=== PATIENT | female | born 1990 | race Caucasian/White ===

== ENCOUNTER 2023-02-21 21:23 | Outpatient (REF) | payer OTHER, SELFPAY ==
[2023-02-24 20:10] LABS: Age Gdln ACOG Testing Note (.); HPV Aptima Negative (Negative); IGP, Aptima HPV, rfx 16/18,45 Note (.)
== END 2023-02-21 21:24 | disposition home or self-care (01) ==
LOC: LAB 21:23
PROVIDERS: Visit Provider Obstetrics & Gynecology
DX: Z01.419 Encounter for gynecological examination (general) (routine) without abnormal findings (principal)
CPT/HCPCS: 87624; G0145

== ENCOUNTER 2024-02-08 11:10 | Outpatient (OUT) | payer OTHER, SELFPAY ==
[2024-02-08 13:02] LABS: TSH W/ REFLEX FT4 2.144 uIU/mL (0.358-3.740)
== END 2024-02-08 11:11 | disposition home or self-care (01) ==
DX: R53.83 Other fatigue (principal)
CPT/HCPCS: 36415; 84443

== ENCOUNTER 2024-07-30 20:54 | Outpatient (REF) | payer OTHER, SELFPAY ==
--- OUTSIDE RECORDS SUMMARY | 2024-07-30 20:57 | XMS_ITS | CCD ---
Author Organization [facility] Care Team Providers Care Pompom Maker Name Role Phone ROSANA JERRYSAM Ovalle Primary Care Unavailable MISC, DR SANFORD Primary Care Unavailable EJ, DR ANDRES Attending Unavailable EJ, DR ANDRES Admitting Unavailable EJ, DR ANDRES Consulting Unavailable MISC, DR SANFORD Primary Care Unavailable EJ, DR ANDRES Admitting Unavailable WEST, DR JAYANT Becerra Consulting Unavailable EJ, DR ANDRES Attending Unavailable EJ, DR ANDRES Consulting Unavailable MISC, DR SANFORD Primary Care Unavailable EJ, DR ANDRES Admitting Unavailable EJ, DR ANDRES Consulting Unavailable EJ, DR ANDRES Attending Unavailable MISC, DR SANFORD Primary Care Unavailable KARASIK, DR CROUCH Admitting Unavailable KARASIK, DR CROUCH Consulting Unavailable KARASIK, DR CROUCH Attending Unavailable ZIEBER, DR MARIELENA Romero Consulting Unavailable EJ, DR ANDRES Admitting Unavailable EJ, DR ANDRES Attending Unavailable MISC, DR SANFORD Primary Care Unavailable EJ, DR ANDRES Consulting Unavailable ZIEBER, DR MARIELENA Romero Consulting Unavailable EJ, DR ANDRES Admitting Unavailable MISC, DR SANFORD Primary Care Unavailable EJ, DR ANDRES Consulting Unavailable EJ, DR ANDRES Attending Unavailable MISC, DR SANFORD Primary Care Unavailable KARASIK, DR CROUCH Admitting Unavailable KARASIK, DR CROUCH Attending Unavailable EJ, DR ANDRES Admitting Unavailable MISC, DR SANFORD Primary Care Unavailable EJ, DR ANDRES Attending Unavailable MISC, DR SANFORD Primary Care Unavailable KARASIK, DR CROUCH Admitting Unavailable KARASIK, DR CROUCH Consulting Unavailable KARASIK, DR CROUCH Attending Unavailable KARASIK, DR CROUCH Procedure Practitioner NANDO Chacon Consulting Unavailable KAMILLE GREENE Consulting Unavailab le MISC, DR SANFORD Primary Care Unavailable EJ, DR ANDRES Admitting Unavailable EJ, DR ANDRES Attending Unavailable EJ, DR ANDRES Consulting Unavailable MISC, DOCTOR Primary Care Unavailable EJ, DR ANDRES Attending Unavailable EJ, DR ANDRES Admitting Unavailable EJ, DR ANDRES Consulting Unavailable EJ, DR ANDRES Admitting Unavailable MISC, DR SANFORD Primary Care Unavailable EJ, DR ANDRES Consulting Unavailable EJ, DR ANDRES Attending Unavailable MISC, DR SANFORD Primary Care Unavailable EJ, DR ANDRES Attending Unavailable EJ, DR ANDRES Admitting Unavailable EJ, DR ANDRES Consulting Unavailable ZIEBER, DR MARIELENA Romero Consulting Unavailable Allergies Allergy Classification Reported Allergen(s) Allergy Type Date of Onset Reaction(s) Facility (1 source) Doxycycline Drug Allergy 09-28-2013 [facility] Rep[facility] (1 source) Propranolol Drug Allergy 09-28-2013 [facility] (1 source) Shellfish Drug allergy (disorder) 04-23-2016 [facility] Problems Active Problems Problem Classification Problem Date Documented Da te Episodic/Chronic Acute bronchitis (1 source) Acute bronchitis, unspecified; Translations: [Acute bronchitis, unspecified] Onset: 09-30-2018 Episodic Deficiency and other anemia (1 source) Iron deficiency anemia secondary to blood loss (chronic); Translations: [IRON DEFIC ANEMIA SEC BLD LOSS CHRN] Onset: 07-26-2022 Chronic Menstrual disorders (4 sources) Irregular menstruation, unspecified; Translations: [IRREGULAR MENSTRUATION UNSPECIFIED] Onset: 01-01-2022 Chronic Other complications of ; puerperium affecting management of mother (1 source) Anemia complicating childbirth; Translations: [ANEMIA COMPLICATING CHILDBIRTH] Onset: 07-26-2022 Chronic Other complications of ; puerperium affecting management of mother (1 source) Abnormality in heart rate and rhythm complicating labor and delivery; Translations: [ABN FETL HEART RATE RHYTHM COMP L AND D] Onset: 07-26-2022 Episodic Other and delivery including normal (11 sources) Encounter for care and examination of lactating mother; Translations: [Encounter for routine follow-up] Onset: 07-04-2022 Episodic Pleurisy; pneumothorax; pulmonary collapse (1 source) Pleurisy; Translations: [Pleurisy] Onset: 09-30-2018 Episodic Polyhydramnios and other problems of amniotic cavity (1 source) Full-term premature rupture of membranes, onset of labor within 24 hours of rupture; Translations: [FT PROM ONSET LABR W/I 24 HR RUPT] Onset: 07-26-2022 Episodic Residual codes; unclassified (1 source) 37 weeks gestation of ; Translations: [37 WEEKS GESTATION OF ] Onset: 07-26-2022 Episodic Screening and history of mental health and substance abuse codes (1 source) Personal history of nicotine dependence; Translations: [PERSONAL HISTORY OF NICOTINE DEPEND] Onset: 07-26-2022 Episodic Unclassified (1 source) CONTACT W/AND (SUSP) EXPOS COVID-19; Translations: [CONTACT W/AND (SUSP) EXPOS COVID-19] Onset: 07-26-2022 Past or Other Problems Problem Classification Problem Date Documented Date Episodic/Chronic Diabetes mellitus without complication (4 sources) Hyperglycemia, unspecified; Translations: [HYPERGLYCEMIA UNSPECIFIED] Onset: 05-18-2022 Episodic Immunizations and screening for infectious disease (3 sources) Encounter for screening for human papillomavirus (HPV); Translations: [Encounter for screening for infections with a predominantly sexual mode of transmission] Onset: 01-06-2022 Episodic Other complications of (4 sources) Maternal care for cervical incompetence, second trimester; Translations: [MAT CARE CERV INCOMPETNCE 2ND TRI] Onset: 02-03-2022 Episodic Other complications of (1 source) Maternal care for cervical incompetence, first trimester; Translations: [MAT CARE CERV INCOMPETNCE 1ST TRI] Onset: 01-15-2022 Episodic Other female genital disorders (1 source) Other specified noninflammatory disorders of vagina; Translations: [OTH SPEC NONINFLAMMATORY D/O VAGINA] Onset: 02-13-2022 Episodic Other female genital disorders (3 sources) Incompetence of cervix uteri; Translations: [INCOMPETENCE OF CERVIX UTERI] Onset: 01-13-2022 Episodic Other screening for suspected conditions (not mental disorders or infectious disease) (20 sources) Encounter for screening for Streptococcus B; Translations: [Encounter for screening for diabetes mellitus] Onset: 01-01-2022 Episodic Residual codes; unclassified (1 source) 16 weeks gestation of ; Translations: [16 WEEKS GESTATION OF ] Onset: 02-22-2022 Episodic Residual codes; unclassified (1 source) 13 weeks gestation of ; Translations: [13 WEEKS GESTATION OF ] Onset: 01-15-2022 Episodic Results Test Name Value Interpretation Reference Range [facility] 07-24-2024 Refill [id number] Miles,Marci 1990 F Date Provider Department Home 07/24/2024 287-PATRICIA, JIMBO HVC CARD [facility] No family history on file Reason for Visit and Comments: Med Refill [[id number]] [facility] 06-25-2024 Refill [id number] Miles,Marci 1990 Date [facility] Department Home 06/25/2024 287-PATRICIA, JIMBO [facility] CARD [facility] No family history on file Reason for Visit and Comments: Med Refill [[id number]] [facility] 05-29-2024 Refill [id number] Miles,Marci 1990 F Date Provider Department Home 05/29/2024 Poornima6-BA PANIAGUA HVCANTICOAG [facility] No family history on file Reason for Visit and Comments: Med Refill [[id number]] [facility] 05-25-2024 Refill [id number] Miles,Marci 1990 F Date Provider Department Home 05/25/2024 287-PATRICIA, JIMBO HVC CARD [facility] No family history on file Reason for Visit and Comments: Med Refill [[id number]] [facility] 04-26-2024 Refill [id number] Miles,Marci 1990 F Date Provider Department Home 04/26/2024 287-PATRICIA, JIMBO HVC CARD [facility] No family history on file Reason for Visit and Comments: Med Refill [[id number]] [facility] 36on 03-29-2024 36 Previous fill to pharmacy on back order. Pt requests to have sent to different pharm [facility] 03-29-2024 Refill [id number] Miles,Marci 1990 F Date Provider Department Center 03/29/2024 287-PATRICIA, JIMBO [facility]VC CARD [facility] No family history on file Reason for Visit and Comments: Med Refill [[id number]] Normal [facility] 03-27-2024 Refill [id number] Miles,Marci 1990 F Date Provider Department Center 03/27/2024 287-PATRICIA, JIMBO HVC CARD [facility] No family history on file Reason for Visit and Comments: Med Refill [[id number]] [facility] 02-28-2024 Refill [id number] Miles,Marci 1990 Date Provider Department Home 02/28/2024 287-PATRICIA, JIMBO HVC CARD [facility] No family history on file Reason for Visit and Comments: Med Refill [[id number]] [facility] 01-30-2024 Refill [id number] Miles,Marci 1990 F Date Provider Department Center 01/30/2024 287-PATRICIA, JIMBO HVC CARD [facility] No family history on file Reason for Visit and Comments: Med Refill [[id number]] [facility] 01-02-2024 Refill [id number] Miles,Marci 1990 F Date Provider Department Home 01/02/2024 287-PATRICIA, JIMBO HVC CARD [facility] No family history on file Reason for Visit and Comments: Med Refill [[id number]] [facility] 11-09-2023 Refill [id number] Miles,Marci 1990 F Date Provider Department Center 11/09/2023 287-PATRICIA, JIMBO HVC CARD [facility] No family history on file Reason for Visit and Comments: Med Refill [[id number]] [facility] 11-08-2023 Refill [id number] Miles,Marci 1990 F Date Provider Department Center 11/08/2023 BA PEARCE [facility]VCANTICOAG [facility] No family history on file Reason for Visit and Comments: Med Refill [[id number]] [facility] 10-11-2023 Refill [id number] Miles,Marci 1990 Provider Department Home 10/11/2023 287-PATRICIA, JIMBO HVC CARD [facility] No family history on file Reason for Visit and Comments: Med Refill [[id number]] [facility] 09-12-2023 Refill [id number] Miles,Marci 1990 Provider Department Home 09/12/2023 287-PATRICIA, JIMBO HVC CARD [facility] No family history on file Reason for Visit and Comments: Med Refill [[id number]] [facility] 08-17-2023 Refill [id number] MilesMarci 1990 Provider Department Home 08/17/2023 287-PATRICIA, JIMBO HVC CARD [facility] No family history on file Reason for Visit and Comments: Med Refill [[id number]] [facility] 08-10-2023 Refill [id number] MilesMarci 1990 Provider Department Home 08/10/2023 287-PATRICIA, JIMBO HVC CARD [facility] No family history on file Reason for Visit and Comments: Med Refill [[id number]] [facility] PRBC LEUKOREDUCEDon 07-06-20 22 ABO and Rh group Nom (Bld) Cross Match Result Compatible Unit Blood Type A Pos Unit Number [id number] Status Information Transfused Product ID Red Blood Cells Product Code [id number] Cross Match Result Compatible Unit Blood Type A Pos Unit Number [id number] Status Information Transfused Product ID Red Blood Cells Product Code [id number] [facility] Comment on above: Performed By: #### P RBC #### [facility] [address] [place] [address] Dr. Kobi Cruz CBC AUTO DIFFon 07-05-2022 BASO # 0.0 103/ul Normal 0.0-0.1 [facility] Comment on above: Performed By: #### C BC #### [facility] [address] [place] [address] Dr. Kobi Cruz Basophils/100 WBC (Bld) 0.2 % Normal 0.2-2.0 [facility] Comment on above: Performed By: #### C BC #### [facility] [address] [place] [address] Dr. Kobi Cruz EO # 0.1 103/ul Normal 0.0-0.7 [facility] Comment on above: Performed By: #### C BC #### [facility] [address] [place] [address] Dr. Kobi Cruz Eosinophils/100 WBC (Bld) 0.4 % Critically low 0.9-7.0 [facility] Comment on above: Performed By: #### C BC #### [facility] [address] [place] [address] Dr. Kobi Cruz Erythrocyte distribution width (RBC) [Ratio] 16.0 % Critically high 11.0-15.0 [facility] Comment on above: Performed By: #### C BC #### [facility] [address] [place] [address] Dr. Kobi Cruz Hematocrit (Bld) [Volume fraction] 25.1 % Critically low 36.0-48.0 [facility] Comment on above: Performed By: #### C BC #### [facility] [address] [place] [address] Dr. Kobi Cruz Hemoglobin (Bld) [Mass/Vol] 8.2 g/dL Critically low 12.0-16.0 [facility] Comment on above: Performed By: #### C BC #### [facility] [address] [place] [address] Dr. Kobi Cruz IG # 0.20 10e3/ul Critically high 0.00-0.03 [facility] Comment on above: Performed By: #### C BC #### [facility] [address] [place] [address] Dr. Kobi Cruz IG % 1.1 % Critically high 0.0-0.5 [facility] Comment on above: Performed By: #### C BC #### [facility] [address] [place] [address] Dr. Kobi Cruz LYMPH # 1.9 103/ul Normal 1.2-3.8 [facility] Comment on above: Performed By: #### C BC #### [facility] [address] [place] [address] Dr. Kobi Cruz Lymphocytes/100 WBC (Bld) 10.1 % Critically low 20.5-60.0 [facility] Comment on above: Performed By: #### C BC #### [facility] [address] [place] [address] Dr. Kobi Cruz MANUAL DIFF REQ NO Normal [facility] Comment on above: Performed By: #### C BC #### [facility] [address] [place] [address] Dr. Kobi Cruz MCH (RBC) [Entitic mass] 27.1 pg Normal 26.7-34.0 [facility] Comment on above: Performed By: #### C BC #### [facility] [address] [place] [address] Dr. Kobi Cruz MCHC (RBC) [Mass/Vol] 32.7 g/dL Normal 29.9-35.2 [facility] Comment on above: Performed By: #### C BC #### [facility] [address] [place] [address] Dr. Kobi Cruz MCV (RBC) [Entitic vol] 82.8 fL Normal 81.0-99.0 [facility] Comment on above: Performed By: #### C BC #### [facility] [address] [place] [address] Dr. Kobi Cruz MONO # 1.2 103/ul Critically high 0.3-0.8 [facility] Comment on above: Performed By: #### C BC #### [facility] [address] [place] [address] Dr. Kobi Cruz Monocytes/100 WBC (Bld) 6.4 % Normal 1.7-12.0 [facility] Comment on above: Performed By: #### C BC #### [facility] [address] [place] [address] Dr. Kobi Cruz NEUT # 15.4 103/ul Critically high 1.4-6.5 [facility] Comment on above: Performed By: #### C BC #### [facility] [address] [place] [address] Dr. Kobi Cruz Neutrophils/100 WBC (Bld) 81.8 % Critically high 43.0-75.0 [facility] Comment on above: Performed By: #### C BC #### [facility] [address] [place] [address] Dr. Kobi Cruz Platelet mean volume (Bld) [Entitic vol] 10.2 fL Normal 9.5-13.5 [facility] Comment on above: Performed By: #### C BC #### [facility] [address] [place] [address] Dr. Kobi Cruz PLT 211 103/ul Normal 150-450 [facility] Comment on above: Performed By: #### C BC #### [facility] [address] [place] [address] Dr. Kobi Cruz RBC 3.03 106/ul Critically low 4.20-5.40 [facility] Comment on above: Performed By: #### C BC #### [facility] [address] [place] [address] Dr. Kobi Cruz WBC 18.8 103/ul Critically high 4.0-11.0 [facility] Comment on above: Performed By: #### C BC #### [facility] [address] [place] [address] Dr. Kobi Cruz BASO # 0.0 103/ul Normal 0.0-0.1 [facility] Comment on above: Performed By: #### C BC #### [facility] [address] [place] [address] Dr. Kobi Cruz Basophils/100 WBC (Bld) 0.1 % Critically low 0.2-2.0 [facility] Comment on above: Performed By: #### C BC #### [facility] [address] [address] [address] Kobi Cruz EO # 0.0 103/ul Normal 0.0-0.7 [facility] Comment on above: Performed By: #### C BC #### [facility] [address] [address] [address] Kobi Cruz Eosinophils/100 WBC (Bld) 0.2 % Critically low 0.9-7.0 [facility] Comment on above: Performed By: #### C BC #### [facility] [address] [place] [address] Dr. Kobi Cruz Erythrocyte distribution width (RBC) [Ratio] 15.7 % Critically high 11.0-15.0 [facility] Comment on above: Performed By: #### C BC #### [facility] [address] [place] [address] Dr. Kobi Cruz Hematocrit (Bld) [Volume fraction] 21.2 % Critically low 36.0-48.0 [facility] Comment on above: Performed By: #### C BC #### [facility] [address] [place] [address] Dr. Kobi Cruz Hemoglobin (Bld) [Mass/Vol] 6.5 g/dL Critically low 12.0-16.0 [facility] Comment on above: Performed By: #### C BC #### [facility] [address] [address] [address] Kobi Cruz IG # 0.13 10e3/ul Critically high 0.00-0.03 [facility] Comment on above: Performed By: #### C BC #### [facility] [address] [place] [address] Dr. Kobi Cruz IG % 0.7 % Critically high 0.0-0.5 [facility] Comment on above: Performed By: #### C BC #### [facility] [address] [place] [address] Dr. Kobi Cruz LYMPH # 1.9 103/ul Normal 1.2-3.8 [facility] Comment on above: Performed By: #### C BC #### [facility] [address] [address] [address] Kobi Cruz Lymphocytes/100 WBC (Bld) 9.9 % Critically low 20.5-60.0 [facility] Comment on above: Performed By: #### C BC #### [facility] [address] [address] [address] Kobi Cruz MANUAL DIFF REQ NO Normal [facility] Comment on above: Performed By: #### C BC #### [facility] [address] [address] [address] Kobi Cruz MCH (RBC) [Entitic mass] 24.4 pg Critically low 26.7-34.0 [facility] Comment on above: Performed By: #### C BC #### [facility] [address] [place] [address] Dr. Kobi Cruz MCHC (RBC) [Mass/Vol] 30.7 g/dL Normal 29.9-35.2 [facility] Comment on above: Performed By: #### C BC #### [facility] [address] [place] [address] Dr. Kobi Cruz MCV (RBC) [Entitic vol] 79.7 fL Critically low 81.0-99.0 [facility] Comment on above: Performed By: #### C BC #### [facility] [address] [place] [address] Dr. Kobi Cruz MONO # 1.0 103/ul Critically high 0.3-0.8 [facility] Comment on above: Performed By: #### C BC #### [facility] [address] [place] [address] Dr. Kboi Cruz Monocytes/100 WBC (Bld) 5.3 % Normal 1.7-12.0 [facility] Comment on above: Performed By: #### C BC #### [facility] [address] [place] [address] Dr. Kobi Cruz NEUT # 15.8 103/ul Critically high 1.4-6.5 [facility] Comment on above: Performed By: #### C BC #### [facility] [address] [address] [address] Kobi Cruz Neutrophils/100 WBC (Bld) 83.8 % Critically high 43.0-75.0 [facility] Comment on above: Performed By: #### C BC #### [facility] [address] [place] [address] Dr. Kobi Cruz Platelet mean volume (Bld) [Entitic vol] 10.2 fL Normal 9.5-13.5 [facility] Comment on above: Performed By: #### C BC #### [facility] [address] [address] [address] Kobi Cruz PLT 218 103/ul Normal 150-450 [facility] Comment on above: Performed By: #### C BC #### [facility] [address] [place] [address] Dr. Kobi Cruz RBC 2.66 106/ul Critically low 4.20-5.40 [facility] Comment on above: Performed By: #### C BC #### [facility] [address] [place] [address] Dr. Kobi Cruz WBC 18.8 103/ul Critically high 4.0-11.0 [facility] Comment on above: Performed By: #### C BC #### [facility] [address] [place] [address] Dr. Kobi Cruz CBC AUTO DIFFon 07-04-2022 BASO # 0.0 103/ul Normal 0.0-0.1 [facility] Comment on above: Performed By: #### H H #### [facility] [address] [place] [address] Dr. Kobi Cruz Basophils/100 WBC (Bld) 0.1 % Critically low 0.2-2.0 [facility] Comment on above: Performed By: #### H H #### [facility] [address] [place] [address] Dr. Kobi Cruz EO # 0.1 103/ul Normal 0.0-0.7 [facility] Comment on above: Performed By: #### H H #### [facility] [address] [address] [address] Kobi Cruz Eosinophils/100 WBC (Bld) 0.6 % Critically low 0.9-7.0 [facility] Comment on above: Performed By: #### H H #### [facility] [address] [address] [address] Kobi Cruz Erythrocyte distribution width (RBC) [Ratio] 15.5 % Critically high 11.0-15.0 [facility] Comment on above: Performed By: #### H H #### [facility] [address] [place] [address] Dr. Kobi Cruz Hematocrit (Bld) [Volume fraction] 26.7 % Critically low 36.0-48.0 [facility] Comment on above: Performed By: #### H H #### [facility] [address] [place] [address] Dr. Kobi Cruz Hemoglobin (Bld) [Mass/Vol] 8.4 g/dL Critically low 12.0-16.0 [facility] Comment on above: Performed By: #### H H #### [facility] [address] [place] [address] Dr. Kobi Cruz IG # 0.12 10e3/ul Critically high 0.00-0.03 [facility] Comment on above: Performed By: #### H H #### [facility] [address] [place] [address] Dr. Kobi Cruz IG % 0.9 % Critically high 0.0-0.5 [facility] Comment on above: Performed By: #### H H #### [facility] [address] [address] [address] Kobi Cruz LYMPH # 1.6 103/ul Normal 1.2-3.8 [facility] Comment on above: Performed By: #### H H #### [facility] [address] [place] [address] Dr. Kobi Cruz Lymphocytes/100 WBC (Bld) 11.6 % Critically low 20.5-60.0 [facility] Comment on above: Performed By: #### H H #### [facility] [address] [address] [address] Kobi Cruz MANUAL DIFF REQ NO Normal [facility] Comment on above: Performed By: #### H H #### [facility] [address] [place] [address] Dr. Kobi Cruz MCH (RBC) [Entitic mass] 24.7 pg Critically low 26.7-34.0 [facility] Comment on above: Performed By: #### H H #### [facility] [address] [address] [address] Kobi Cruz MCHC (RBC) [Mass/Vol] 31.5 g/dL Normal 29.9-35.2 [facility] Comment on above: Performed By: #### H H #### [facility] [address] [place] [address] Dr. Kobi Cruz MCV (RBC) [Entitic vol] 78.5 fL Critically low 81.0-99.0 [facility] Comment on above: Performed By: #### H H #### [facility] [address] [place] [address] Dr. Kobi Cruz MONO # 1.0 103/ul Critically high 0.3-0.8 [facility] Comment on above: Performed By: #### H H #### [facility] [address] [place] [address] Dr. Kobi Cruz Monocytes/100 WBC (Bld) 7.0 % Normal 1.7-12.0 [facility] Comment on above: Performed By: #### H H #### [facility] [address] [place] [address] Dr. Kobi Cruz NEUT # 10.8 103/ul Critically high 1.4-6.5 [facility] Comment on above: Performed By: #### H H #### [facility] [address] [place] [address] Dr. Kobi Cruz Neutrophils/100 WBC (Bld) 79.8 % Critically high 43.0-75.0 [facility] Comment on above: Performed By: #### H H #### [facility] [address] [address] [address] Kobi Cruz Platelet mean volume (Bld) [Entitic vol] 11.0 fL Normal 9.5-13.5 [facility] Comment on above: Performed By: #### H H #### [facility] [address] [address] [address] Kobi Cruz PLT 280 103/ul Normal 150-450 [facility] Comment on above: Performed By: #### H H #### [facility] [address] [address] [address] Kobi Cruz RBC 3.40 106/ul Critically low 4.20-5.40 [facility] Comment on above: Performed By: #### H H #### [facility] [address] [address] [address] Kobi Cruz WBC 13.5 103/ul Critically high 4.0-11.0 [facility] Comment on above: Performed By: #### H H #### [facility] [address] [address] [address] Kobi Cruz Covid-19 PCR ([facility])on 06-07 SARS-CoV-2 (COVID-19) RNA GAETANO+probe Ql (Unsp spec) Not detected Normal NOT DETECTED [facility] Comment on above: Result Comment: When diagnostic testing is negative, the possibility of a false negative should be considered in the context of a patient's recent exposures and the presence of clinical signs and symptoms consistent with SARS-CoV-2. This test is not yet approved or cleared by the [place] FDA. When there are no FDA-approved or cleared tests available, and other criteria are met, FDA can make tests available under an emergency access mechanism called an Emergency Use Authorization (EUA). The EUA for this test is supported by the [employer] of Health and Human Service's declaration that circumstances exist to justify the emergency use of in vitro diagnostics for the detection and/or diagnosis of the virus that causes COVID-19. This EUA will remain in effect for the duration of the COVID-19 declaration justifying emergency of IVDs, unless it is terminated or revoked by the FDA (after which the test may no longer be used). Performed By: #### A 1C #### [facility] [address] [place] [address] Dr. Kobi Cruz DRUG SCREEN RAPID (URINE)on 07-04-2022 AMP Negative Normal NEGATIVE [facility] Comment on above: Performed By: #### H H #### [facility] [address] [place] [address] Dr. Kobi Cruz BAR Negative Normal NEGATIVE [facility] Comment on above: Performed By: #### H H #### [facility] [address] [place] [address] Dr. Kobi Cruz BUP Negative Normal NEGATIVE [facility] Comment on above: Performed By: #### H H #### [facility] [address] [place] [address] Dr. Kobi Cruz BZO Negative Normal NEGATIVE [facility] Comment on above: Performed By: #### H H #### [facility] [address] [place] [address] Dr. Kobi Cruz GUSTAVO Negative Normal NEGATIVE [facility] Comment on above: Performed By: #### H H #### [facility] [address] [place] [address] Dr. Kobi Cruz CUT-OFFS SEE BELOW Normal [facility] Comment on above: Result Comment: AMP (Amphetamine): 500ng/mL, BAR (Barbituates): 200 ng/mL, BZO (Benzodiazepines): 150 ng/mL, BUP (Buprenorphine): 10 ng/mL, GUSTAVO (Cocaine): 150 ng/mL, mAMP (Methamphetamine): 500 ng/mL, MTD (Methadone): 200 ng/mL, OPI (Opiates): 100 ng/mL, OXY (Oxycodone): 100 ng/mL, PCP (Phencyclidine): 25 ng/mL, PPX (Propoxyphene): 300 ng/mL, THC (Cannabinoids): 50 ng/mL, TCA (Trycyclic Antidepressants): 300 ng/mL Performed By: #### H H #### [facility] [address] [place] [address] Dr. Kobi Cruz DRUG CUT HEADER DRUG CLASS TEST SYSTEM CUT-OFF CONCENTRATIONS ARE FOLLOWS: Normal [facility] Comment on above: Performed By: #### H H #### [facility] [address] [place] [address] Dr. Kobi Cruz mAMP Negative Normal NEGATIVE [facility] Comment on above: Performed By: #### H H #### [facility] [address] [address] [address] Kobi Cruz MTD Negative Normal NEGATIVE [facility] Comment on above: Performed By: #### H H #### [facility] [address] [address] [address] Kobi Cruz OPI Negative Normal NEGATIVE [facility] Comment on above: Performed By: #### H H #### [facility] [address] [place] [address] Dr. Kobi Cruz OXY Negative Normal NEGATIVE [facility] Comment on above: Performed By: #### H H #### [facility] [address] [place] [address] Dr. Kobi Cruz PCP Negative Normal NEGATIVE [facility] Comment on above: Performed By: #### H H #### [facility] [address] [address] [address] Kobi Cruz PPX Negative Normal NEGATIVE [facility] Comment on above: Performed By: #### H H #### [facility] [address] [place] [address] Dr. Kobi Cruz TCA Negative Normal NEGATIVE [facility] Comment on above: Performed By: #### H H #### [facility] [address] [place] [address] Dr. Kobi Cruz THC Negative Normal NEGATIVE [facility] Comment on above: Performed By: #### H H #### [facility] [address] [place] [address] Dr. Kobi Cruz TYPE AND SCREENon 07-04-2022 TYPE AND SCREEN Negative Normal [facility] Comment on above: Performed By: #### H H #### [facility] [address] [place] [address] Dr. Kobi Cruz GROUP B STREP CULTUREon 06-052 S. agalactiae Ag Ql (Unsp spec) Culture Observations: NEGATIVE FOR GROUP B STREPTOCOCCUS. Normal [facility] Comment on above: Performed By: #### H H #### [facility] [address] [place] [address] Dr. Kobi Cruz GLUCOSE BLOODon 05-18-2022 Glucose [Mass/Vol] 93 mg/dL Normal 74-106 [facility] Comment on above: Performed By: #### G LEONCIO #### [facility] [address] [place] [address] Dr. Kobi Cruz Performed By: #### A 1C #### [facility] [address] [place] [address] Dr. Kobi Cruz GTT 3 HR PREGon 05-18-2022 Glucose [Mass/Vol] 153 mg/dL Normal [facility] Comment on above: Performed By: #### A 1C #### [facility] [address] [place] [address] Dr. Kobi Cruz Glucose [Mass/Vol] 84 mg/dL Normal [facility] Comment on above: Performed By: #### A 1C #### [facility] [address] [place] [address] Dr. Kobi Cruz Glucose [Mass/Vol] 80 mg/dL Normal [facility] Comment on above: Performed By: #### A 1C #### [facility] [address] [place] [address] Dr. Kobi Cruz GLUCOSE - 1HRon 05-04-2022 Glucose [Mass/Vol] 140 mg/dL Critically high 74-106 [facility] Comment on above: Performed By: #### A 1C #### [facility] [address] [place] [address] Dr. Kobi Cruz HEMOGRAM AND PLATELon 2021 Hematocrit (Bld) [Volume fraction] 29.7 % Critically low 36.0-48.0 [facility] Comment on above: Performed By: #### H H #### [facility] [address] [place] [address] Dr. Kobi Cruz Hemoglobin (Bld) [Mass/Vol] 9.6 g/dL Critically low 12.0-16.0 [facility] Comment on above: Performed By: #### H H #### [facility] [address] [place] [address] Dr. Kobi Cruz MCH (RBC) [Entitic mass] 28.1 pg Normal 26.7-34.0 [facility] Comment on above: Performed By: #### H H #### [facility] [address] [place] [address] Dr. Kobi Cruz MCHC (RBC) [Mass/Vol] 32.3 g/dL Normal 29.9-35.2 [facility] Comment on above: Performed By: #### H H #### [facility] [address] [place] [address] Dr. Kobi Cruz MCV (RBC) [Entitic vol] 86.8 fL Normal 81.0-99.0 [facility] Comment on above: Performed By: #### H H #### [facility] [address] [place] [address] Dr. Kobi Cruz PLT 320 103/ul Normal 150-450 [facility] Comment on above: Performed By: #### H H #### [facility] [address] [place] [address] Dr. Kobi Cruz RBC 3.42 106/ul Critically low 4.20-5.40 [facility] Comment on above: Performed By: #### H H #### [facility] [address] [place] [address] Dr. Kobi Cruz WBC 12.4 103/ul Critically high 4.0-11.0 [facility] Comment on above: Performed By: #### H H #### [facility] [address] [place] [address] Dr. Kobi Cruz US PREG ANATOMY SINGLEon US PREG ANATOMY SINGLE EXAMINATION: US PREG ANATOMY SINGLE HISTORY: anatomy study COMPARISON: No relevant comparison available. TECHNIQUE: Transabdominal sonographic examination was performed for obstetrical and evaluation. FINDINGS: Number: 1 Heart Rate: 141.0 bpm H.B. /min Amniotic Fluid Volume: Subjectively normal position: Cephalic presentation, longitudinal lie Placental Location: Posterior. Grade 0. Placental edge 2.9 cm from the cervical os Cervix Length: 4 cm , closed Normally visualized anatomy: Cerebellum, choroid plexus, cisterna magna, lateral cerebral ventricles, orbits, midline falx, hard palate, four-chamber heart, RVOT, LVOT, stomach, kidneys, bladder, umbilical cord insertion into the abdomen, three-vessel cord, cervical spine, thoracic spine, lumbar spine, sacral spine, right upper extremity, left upper extremity, right lower extremity, left lower extremity Suboptimally visualized anatomy: None BIOMETRY: BPD: 4.8 cm 20 weeks 3 days , 58% HC: 17.5 cm 20 weeks 0 days, 30% AC: 14.9 cm 20 weeks 1 days, 41% FL: 3.5 cm 21 weeks 0 days, 65% EFW:356.6 grams; 13 ounces, 57% FL/AC: 23.2 FL/BPD: 72.4 HC/AC: 1.2 GESTATIONAL AGE: Age by EDC: 20 weeks 2 days JEISON by EDC: 07/19/2022 Age by current US: 20 weeks 3 days JEISON by current US: 07/18/2022 IMPRESSION: Normal anatomy scan *Reference: [facility] Practice Guideline for the performance of Obstetric Ultrasound Examinations, June 05, 2007. Electronically authenticated by: JAYANT MCGRAW Date: 2022-03-03 16:43 Normal [facility] PAP ACOG PANEL 2: 21 to 29on 02-15-2022 . . Normal [facility] Comment on above: Performed By: #### A 1C #### [facility] [address] [address] [address] Kobi Cruz Age Gdln ACOG Testing Normal [facility] Comment on above: Performed By: #### A 1C #### [facility] [address] [address] [address] Kobi Cruz DIAGNOSIS: Comment [facility] Comment on above: Result Comment: NEGA TIVE FOR INTRAEPITHELIAL LESION OR MALIGNANCY. Performed By: #### A 1C #### [facility] [address] [address] [address] Kobi Cruz Methodology: Comment [facility] Comment on above: Result Comment: This liquid based ThinPrep(R) pap test was screened with the use of an image guided system. Performed By: #### A 1C #### [facility] [address] [place] [address] Dr. Kobi Cruz Note: Comment Normal [facility] Comment on above: Result Comment: The Pap smear is a screening test designed to aid in the detection of premalignant and malignant conditions of the uterine cervix. It is not a diagnostic procedure and should not be used as the sole means of detecting cervical cancer. Both false-positive and false-negative reports do occur. . Performed By: #### A 1C #### [facility] [address] [place] [address] Dr. Kobi Cruz Performed by: Comment Normal [facility] Comment on above: Result Comment: Omega Alfaro, Nuclear Logging Engineer (ASCP) Performed By: #### A 1C #### [facility] [address] [place] [address] Dr. Kobi Cruz Reflex Criteria: Comment Normal [facility] Comment on above: Result Comment: The HPV DNA reflex criteria were not met with this specimen result therefore, no HPV testing was performed. . Performed By: #### A 1C #### [facility] [address] [place] [address] Dr. Kobi Cruz Specimen adequacy: Comment Normal [facility] Comment on above: Result Comment: Sati sfactory for evaluation. No endocervical component is identified. Performed By: #### A 1C #### [facility] [address] [place] [address] Dr. Kobi Cruz CHLAMYDIA/GONOCOCCUS GAETANO (SW AB/URINE/PAPon 02-13-2022 Chlamydia trachomatis, GAETANO Negative Normal Negative [facility] Comment on above: Performed By: #### A 1C #### [facility] [address] [place] [address] Dr. Kobi Cruz Neisseria gonorrhoeae, GAETANO Negative Normal Negative [facility] Comment on above: Performed By: #### A 1C #### [facility] [address] [place] [address] Dr. Kobi Curz VAGINITIS/VAGINOSIS DNA PROB Zafar 02-12-2022 Georgette species Negative Normal Negative [facility] Comment on above: Performed By: #### V AGINT #### [facility] [address] [address] [address] Kobi Cruz Gardnerella vaginalis Negative Normal Negative [facility] Comment on above: Performed By: #### V AGINT #### [facility] [address] [address] [address] Kobi Cruz Trichomonas vaginalis Negative Normal Negative [facility] Comment on above: Performed By: #### V AGINT #### [facility] [address] [address] [address] Kobi Cruz US PREG CERVICAL LENGTHon US PREG CERVICAL LENGTH EXAMINATION: US PREG CERVICAL LENGTH HISTORY: Disorder of uterine cervix , cervical incompetence COMPARISON: Ultrasound cervical length 01/13/2022 TECHNIQUE: Transabdominal and transvaginal sonographic examination for cervical length. FINDINGS: CERVIX LENGTH: 4.0 cm, closed. HEART RATE: 151 bpm Age by EDC: 16 weeks, 2 days JEISON by EDC: 07/19/2022 IMPRESSION: 1. Grossly stable, closed cervix 4.0 cm in length (previously 4.3 cm). Electronically authenticated by: MARIELENA MCCARTHY Date: 2022-02-03 10:57 Normal [facility] US PREG CERVICAL LENGTHon US PREG CERVICAL LENGTH EXAMINATION: US PREG CERVICAL LENGTH HISTORY: Disorder of uterine cervix ; cervical incompetence COMPARISON: Ultrasound transvaginal 12/14/2021 TECHNIQUE: Transabdominal and transvaginal sonographic examination for cervical length. FINDINGS: CERVIX LENGTH: 4.3 cm in length; closed. HEART RATE: 147 bpm Age by EDC: 13 weeks, 2 days JEISON by EDC: 07/19/2022 IMPRESSION: 1. Closed cervix 4.3 cm in length. Electronically authenticated by: MARIELENA MCCARTHY Date: 2022-01-13 09:28 Normal [facility] HEP B SURFACE ANTIGEN SCREEN on 01-03-2022 HBsAg Screen Negative Normal Negative [facility] Comment on above: Performed By: #### H BSANS #### [facility] [address] [address] [address] Kobi Cruz HEPATITIS C VIRUS AB W/ REFL EX QUANTon 01-03-2022 HCV AB 0.1 s/co ratio Normal 0.0-0.9 [facility] Comment on above: Performed By: #### A 1C #### [facility] [address] [place] [address] Dr. Kobi Cruz Interpretation: Comment Normal [facility] Comment on above: Result Comment: Nega tive Not infected with HCV, unless recent infection is suspected or other evidence exists to indicate HCV infection. Performed By: #### A 1C #### [facility] [address] [place] [address] Dr. Kobi Cruz HIV 1 AND 2 WITH REFLEXon HIV Screen 4th Generation wRfx Non-Reactive Normal Non Reactive [facility] Comment on above: Result Comment: HIV Negative HIV-1/HIV-2 antibodies and HIV-1 p24 antigen were NOT detected. There is no laboratory evidence of HIV infection. Performed By: #### H H #### [facility] [address] [place] [address] Dr. Kobi Cruz RPR QUANTon 01-03-2022 Rapid Plasma Reagin, Quant Non-Reactive Normal NonRea<1:1 [facility] Comment on above: Result Comment: Plea se Note: This test does not meet current guidelines for screening and diagnosis of syphilis. This test is intended for following treatment response in patients being treated for syphilis infection. To screen for syphilis infection, a reflex cascade that includes both RPR and a treponema-specific assay should be utilized, such as Treponema pallidum (Syphilis) Screening [place] (175734) or Rapid Plasma Reagin (RPR) Test With Reflex to Quantitative RPR and Confirmatory Treponema pallidum Antibodies (440048). Performed By: #### A 1C #### [facility] [address] [place] [address] Dr. Kobi Cruz RUBELLA AB IGGon 01-03-2022 Rubella Antibodies, IgG 12.70 index Normal Immune >0.99 [facility] Comment on above: Result Comment: Non- immune <0.90 Equivocal 0.90 - 0.99 Immune >0.99 Performed By: #### A 1C #### [facility] [address] [place] [address] Dr. Kobi Cruz CBC AUTO DIFFon 01-01-2022 BASO # 0.0 103/ul Normal 0.0-0.1 [facility] Comment on above: Performed By: #### H H #### [facility] [address] [place] [address] Dr. Kobi Cruz Basophils/100 WBC (Bld) 0.2 % Normal 0.2-2.0 [facility] Comment on above: Performed By: #### H H #### [facility] [address] [place] [address] Dr. Kobi Cruz EO # 0.5 103/ul Normal 0.0-0.7 [facility] Comment on above: Performed By: #### H H #### [facility] [address] [place] [address] Dr. Kobi Cruz Eosinophils/100 WBC (Bld) 3.5 % Normal 0.9-7.0 [facility] Comment on above: Performed By: #### H H #### [facility] [address] [place] [address] Dr. Kobi Cruz Erythrocyte distribution width (RBC) [Ratio] 12.5 % Normal 11.0-15.0 [facility] Comment on above: Performed By: #### H H #### [facility] [address] [place] [address] Dr. Kobi Cruz Hematocrit (Bld) [Volume fraction] 34.8 % Critically low 36.0-48.0 [facility] Comment on above: Performed By: #### H H #### [facility] [address] [place] [address] Dr. Kobi Cruz Hemoglobin (Bld) [Mass/Vol] 12.0 g/dL Normal 12.0-16.0 [facility] Comment on above: Performed By: #### H H #### [facility] [address] [place] [address] Dr. Kobi Cruz IG # 0.04 10e3/ul Critically high 0.00-0.03 [facility] Comment on above: Performed By: #### H H #### [facility] [address] [place] [address] Dr. Kobi Cruz IG % 0.3 % Normal 0.0-0.5 [facility] Comment on above: Performed By: #### H H #### [facility] [address] [place] [address] Dr. Kobi Cruz LYMPH # 2.0 103/ul Normal 1.2-3.8 [facility] Comment on above: Performed By: #### H H #### [facility] [address] [place] [address] Dr. Kobi Cruz Lymphocytes/100 WBC (Bld) 14.8 % Critically low 20.5-60.0 [facility] Comment on above: Performed By: #### H H #### [facility] [address] [place] [address] Dr. Kobi Cruz MANUAL DIFF REQ NO Normal [facility] Comment on above: Performed By: #### H H #### [facility] [address] [place] [address] Dr. Kobi Cruz MCH (RBC) [Entitic mass] 30.8 pg Normal 26.7-34.0 [facility] Comment on above: Performed By: #### H H #### [facility] [address] [place] [address] Dr. Kobi Cruz MCHC (RBC) [Mass/Vol] 34.5 g/dL Normal 29.9-35.2 [facility] Comment on above: Performed By: #### H H #### [facility] [address] [place] [address] Dr. Kobi Cruz MCV (RBC) [Entitic vol] 89.2 fL Normal 81.0-99.0 [facility] Comment on above: Performed By: #### H H #### [facility] [address] [place] [address] Dr. Kobi Crzu MONO # 0.8 103/ul Normal 0.3-0.8 [facility] Comment on above: Performed By: #### H H #### [facility] [address] [address] [address] Kobi Cruz Monocytes/100 WBC (Bld) 6.2 % Normal 1.7-12.0 [facility] Comment on above: Performed By: #### H H #### [facility] [address] [address] [address] Kobi Cruz NEUT # 10.1 103/ul Critically high 1.4-6.5 [facility] Comment on above: Performed By: #### H H #### [facility] [address] [address] [address] Kobi Cruz Neutrophils/100 WBC (Bld) 75.0 % Normal 43.0-75.0 [facility] Comment on above: Performed By: #### H H #### [facility] [address] [place] [address] Dr. Kobi Cruz Platelet mean volume (Bld) [Entitic vol] 8.9 fL Critically low 9.5-13.5 [facility] Comment on above: Performed By: #### H H #### [facility] [address] [place] [address] Dr. Kobi Cruz PLT 445 103/ul Normal 150-450 [facility] Comment on above: Performed By: #### H H #### [facility] [address] [place] [address] Dr. Kobi Cruz RBC 3.90 106/ul Critically low 4.20-5.40 [facility] Comment on above: Performed By: #### H H #### [facility] [address] [place] [address] Dr. Kobi Cruz WBC 13.5 103/ul Critically high 4.0-11.0 [facility] Comment on above: Performed By: #### H H #### [facility] [address] [place] [address] Dr. Kobi Cruz CULTURE URINEon 01-01-2022 CULTURE URINE Culture Observations : NO GROWTH Normal [facility] Comment on above: Performed By: #### U RCX #### [facility] [address] [address] [address] Kobi Cruz GLYCOHEMOGLOBIN A1Con 2021 ADA RECOMMENDATION SEE BELOW Normal [facility] Comment on above: Result Comment: ADA RECOMMENDED LIMIT 4.0 - 6.0 ADA THERAPEUTIC TARGET < 7.0 ACTION SUGGESTED > 7.0 Performed By: #### A 1C #### [facility] [address] [place] [address] Dr. Kobi Cruz Glucose [Mass/Vol] 105 mg/dL Normal [facility] Comment on above: Performed By: #### A 1C #### [facility] [address] [place] [address] Dr. Kobi Cruz HbA1c (Bld) [Mass fraction] 5.3 % Normal 4.5-6.2 [facility] Comment on above: Performed By: #### A 1C #### [facility] [address] [place] [address] Dr. Kobi Cruz CECILIO BOX TEST PT SEND OUTo n 01-01-2022 SENT TO REF LAB 01/01/2022 Normal [facility] [facility] Comment on above: Performed By: #### A 1C #### [facility] [address] [place] [address] Dr. Kobi Cruz TYPE AND SCREENon 01-01-2022 TYPE AND SCREEN Negative Normal [facility] Comment on above: Performed By: #### T NS #### [facility] [address] [place] [address] Dr. Kobi Cruz US PREG TVon 12-14-2021 US PREG TV EXAMINATION: US PREG TV HISTORY: Missed period COMPARISON: No relevant comparison available. FINDINGS: GESTATIONAL SAC: Present and normal appearing. POLE: Present and normal appearing. YOLK SAC: Present. CARDIAC: Present. UTERUS: Small subchorionic hematoma, 1.7 x 1.3 x 0.6 cm OVARIES: Right: Normal. Left: Normal. CERVIX: 4.1ength and closed. CUL-DE-SAC: Normal. OTHER: None. AGE BY LMP: 9 weeks, 0 days JEISON BY LMP: 07/19/2022 AGE BY US CRL: 8 weeks, 4 days JEISON BY US CRL: 07/22/2022 IMPRESSION: 1. Single live intrauterine . Electronically authenticated by: MARIELENA MCCARHTY Date: 2021-12-14 10:35 Normal [facility] CBC With Platelet and Differ entialon 09-30-2018 Basophils #/vol (Bld) 0.1 10*3/uL Normal 0.0-0.2 [facility] Basophils/100 WBC (Bld) 1.0 % Normal [facility] Eosinophils #/vol (Bld) 1.1 10*3/uL Critically high 0.0-0.7 [facility] Eosinophils/100 WBC (Bld) 15.0 % Normal [facility] Erythrocyte distribution width Ratio (RBC) 12.0 % Normal 11.5-14.5 [facility] Hematocrit Volume Fraction (Bld) 38.5 % Normal 37.0-47.0 [facility] Hemoglobin mass conc (Bld) 13.6 g/dL Normal 12.0-16.0 [facility] Lymphocytes #/vol (Bld) 1.8 10*3/uL Normal 1.0-4.8 [facility] Lymphocytes/100 WBC (Bld) 23.7 % Normal [facility] MCH Entitic mass (RBC) 33.3 pg Critically high 27.0-31.3 [facility] MCHC mass conc (RBC) 35.3 % Normal 33.0-37.0 [facility] MCV Entitic volume (RBC) 94.3 fL Normal 82.0-100.0 [facility] Monocytes #/vol (Bld) 0.7 10*3/uL Normal 0.2-0.8 [facility] Monocytes/100 WBC (Bld) 8.6 % Normal [facility] Neutrophils #/vol (Bld) 3.9 10*3/uL Normal 1.4-6.5 [facility] Neutrophils/100 WBC (Bld) 51.7 % Normal [facility] Platelets #/vol (Bld) 374 10*3/uL Normal 130-400 [facility] RBC #/vol (Bld) 4.09 10*6/uL Low 4.20-5.40 [facility] WBC #/vol (Bld) 7.6 10*3/uL Normal 4.8-10.8 [facility] Comprehensive Metabolic Pane shane 09-30-2018 Albumin mass conc 4.9 g/dL Normal 3.9-4.9 [facility] ALP enzyme act/vol 49 U/L Normal 40-130 [facility] ALT enzyme act/vol 14 U/L Normal 0-33 [facility] Anion gap molar conc 11 mmol/L Normal 7-13 [facility] AST enzyme act/vol 19 U/L Normal 0-35 [facility] Bilirubin mass conc 0.3 mg/dL Normal 0.0-1.2 [facility] Calcium mass conc 9.5 mg/dL Normal 8.6-10.2 [facility] Chloride molar conc 104 mmol/L Normal 98-107 [facility] CO2 molar conc 24 mmol/L Normal 22-29 [facility] Creatinine mass conc 0.66 mg/dL Normal 0.50-0.90 [facility] GFR/1.73 sq M predicted among blacks MDRD vol rate/area (S/P/Bld) mL/min/{1.73_m2} Normal >60 [facility] Comment on above: Result Comment: >60 mL/min/1.73m2 EGFR, calc. for ages 18 and older using the MDRD formula (not corrected for weight), is valid for stable renal function. GFR/1.73 sq M.predicted MDRD vol rate/area mL/min/{1.73_m2} Normal >60 [facility] Comment on above: Result Comment: >60 mL/min/1.73m2 EGFR, calc. for ages 18 and older using the MDRD formula (not corrected for weight), is valid for stable renal function. Globulin mass conc (S) 3.1 g/dL Normal 2.3-3.5 [facility] Glucose mass conc 104 mg/dL Normal 74-109 [facility] Potassium molar conc 3.8 mmol/L Normal 3.5-5.1 [facility] Protein mass conc 8.0 g/dL Normal 6.4-8.1 [facility] Sodium molar conc 139 mmol/L Normal 132-144 [facility] Urea nitrogen mass conc 13 mg/dL Normal 6-20 [facility] Culture, Urineon 09-30-2018 Culture, Urine ORDERED BY: JAYANT BERMUDEZ SOURCE: Urine Clean Catch COLLECTED: 09/30/18 16:00 ANTIBIOTICS AT [facility]LLIE.: RECEIVED : 09/30/18 16:40 Culture, Urine FINAL 10/01/18 09:26 <50,000 CFU/ml of mixed nadiya Multiple organisms isolated, no predominance. Culture indicates probable contamination. Please review colony count and clinical indications to determine if a repeat culture is necessary. No further workup to be done. Normal [facility] D-Dimer Quanton 09-30-2018 D-Dimer Quant 0.32 mg/L FEU Normal 0.00-0.50 [facility] Comment on above: Result Comment: VTE (DVT or PE) cut-off = 0.50 mg/L FEU Magnesiumon 09-30-2018 Magnesium mass conc 2.1 mg/dL Normal 1.7-2.3 [facility] TSH w/out Reflexon 9 Thyrotropin Qn 1.270 uIU/mL Normal 0.270-4.20 [facility] Urinalysis, reflex to cultur zafar 09-30-2018 Bilirubin Ql (U) Negative Normal Negative [facility] Clarity Nom (U) CLOUDY Abnormal Clear [facility] Color Nom (U) Yellow Normal Straw/Baca [facility] Glucose Ql (U) Negative Normal Negative [facility] Hemoglobin Ql (U) TRACE Abnormal Negative [facility] Ketones Ql (U) Negative Normal Negative [facility] Leukocyte esterase Test strip Ql (U) TRACE Abnormal Negative [facility] Nitrite Ql (U) Negative Normal Negative [facility] pH (U) 5.0 [pH] Normal 5.0-9.0 [facility] Protein Ql (U) Negative Normal Negative [facility] Specific gravity Relative Density (U) 1.036 Normal 1.005-1.03 [facility] Urine Reflexed to Culture YES Normal [facility] Urobilinogen Qn (U) 1.0 {Lenin'U}/dL Normal < 2.0 [facility] Urine Microscopicon 09-30-19 RBC #/vol (U) 3-5 Abnormal 0-2 [facility] WBC #/vol (U) 6-10 Abnormal 0-5 [facility] Bacteria LM.HPF #/area (Urine sed) MANY Abnormal [facility] Urine Epithelial Cells Auto 6-10 Normal 0-5 [facility] Comment on above: Result Comment: Effe ctive 07/31/2018 Urinalysis microscopic performed using the automated methodology (AUWI analyzer). XR CHEST (2 VW)on 09-30-2018 XR CHEST (2 VW) EXAMINATION: XR CHES T (2 VW) CLINICAL HISTORY: cough COMPARISONS: February 24, 2014 FINDINGS: Two views of the chest are submitted. The cardiac silhouette is of normal size configuration. The mediastinum is unremarkable. Pulmonary vascular unremarkable. Right sided trachea. No focal infiltrates. No effusions. No Pneumothoraces. IMPRESSION: NO ACUTE ACTIVE CARDIOPULMONARY PROCESS Interpreted by: Chris Robles MD Signed by: Chris Robles MD 10/01/18 Final result Normal [facility] Encounters Encounter Date Encounter Type Care Provider Facility Start: 07-13-2022 End: 07-20-[address] MCKENNA PAGAN Facility:[facility] Start: 07-09-2022 End: 07-12-[address] DOCTOR SPENCE Facility:[facility] Start: 07-04-2022 End: 07-07-2022 Evaluation and management of inpatient DR DOCTOR SPENCE Facility:[facility] Start: 06-23-2022 End: 06-23-[address] MCKENNA PAGAN Facility:[facility] Start: 05-18-2022 End: 05-18-[address] MCKENNA PAGAN Facility:[facility] Start: 05-04-2022 End: 05-05-[address] DOCTOR SPENCE Facility:[facility] Start: 03-03-2022 End: 03-04-[address] DOCTOR SPENCE Facility:[facility] Start: 02-11-2022 End: 02-11-[address] DOCTOR SPENCE Facility:[facility] Start: 02-03-2022 End: 02-04-[address] DOCTOR SPENCE Facility:[facility] Start: 01-13-2022 End: 01-14-[address] MCKENNA PAGAN Facility:[facility] Start: 01-01-2022 End: 01-02-[address] DOCTOR SPENCE Facility:[facility] Start: 12-14-2021 End: 12-15-[address] DOCTOR SPENCE Facility:[facility] Start: 09-30-2018 End: 09-30-2018 Emergency department patient visit LENO Ovalle [facility] Procedures Date Procedure Procedure Detail Performing Clinician Start: 07-05-2022 Transfusion of Nonau tologous Red Blood Cells into Peripheral Vein, Percutaneous Approach DR DOCTOR SPENCE Start: 07-04-2022 Extraction of Produc ts of Conception, Low Cervical, Open Approach DR DOCTOR SPENCE Start: 09-30-2018 Radiologic exam chest 2 views LENO JERRY Start: 09-30-2018 Assay of magnesium CHRI AYLSSA JERRY Start: 09-30-2018 Assay of thyroid sti mulating hormone tsh LENO JERRY Start: 09-30-2018 Comprehensive metabolic panel LENO JERRY Start: 09-30-2018 POCT URINE CH RISTOPHER ROSALINO Start: 09-30-2018 Blood count complete auto&auto difrntl wbc LENO JERRY Start: 09-30-2018 Culture bacterial qu anttative colony count urine LENO JERRY Start: 09-30-2018 D-DIMER, QUANTITATIVE C HRISTJAY JERRY Start: 09-30-2018 Microscopic urinalysis LENO JERRY Start: 09-30-2018 URINE RT REFLEX TO CULTURE LENO JERRY Payers Date Payer Category Payer Unknown [id number] 1990 Unknown [id number] 2.16.8 [id number] 1990 Unknown [id number] 2.16.84 [id number] 1990 Unknown [id number] 2.16.84 [id number] 1992 Unknown [id number] 2.16.84 [id number] 1992 Unknown [id number] 2.16.84 [id number] 1992 Unknown [id number] 2.16.84 [id number] 1992 Unknown [id number] 2.16.84 [id number] 1992 Unknown [id number] 2.16.84 [id number] 1992 Unknown [id number] 2.16.84 [id number] 1992 Unknown [id number] 2.16.84 [id number] 1992 Unknown [id number] 2.16.84 [id number] 1992 Unknown [id number] 2.16.84 [id number] 1992 Unknown [id number] 2.16.84 [id number] 1957 Medicaid [id number] 1957 Self-pay [id number] 1957 Unknown [id number] Unknown [id number] 2.16.84 [id number] Summary Purpose Family History No Family History Records FoundNo Family History Records FoundNo Family History Records Found Advance Directives No Advanced Directives Records FoundNo Advanced Directives Records FoundNo Advanced Directives Records Found Additional Source Comments INFORMATION SOURCE (unrecogn ized section and content) DATE CREATED AUTHOR 10/14/2018 [facility] DATE CREATED AUTHOR AUTHOR'S ORGANIZ ATION 10/19/2022 [facility] DATE CREATED AUTHOR AUTHOR'S ORGANIZ ATION 07/29/2024 [facility] FOR RECORDS PERTAINING TO PATIENTS WHO ARE OR HAVE BEEN ENROLLED IN A CHEMICAL DEPENDENCY/SUBSTANCEABUSE PROGRAM, SOME INFORMATION MAY BE OMITTED. This clinical summary was aggregated from multiple sources. Caution should be exercised in using it in the provision of clinical care. This summary normalizes information from multiple sources, and as a consequence, information in this document may materially change the coding, format and clinical context of patient data. In addition, data may be omitted in some cases. CLINICAL DECISIONS SHOULD BE BASED ON THE PRIMARY CLINICAL RECORDS. [facility]. provides no warranty or guarantee of the accuracy or completeness of information in this document.
== END 2024-07-30 20:55 | disposition home or self-care (01) ==
LOC: LAB 20:54
PROVIDERS: Visit Provider Obstetrics & Gynecology
DX: Z01.419 Encounter for gynecological examination (general) (routine) without abnormal findings (principal)
CPT/HCPCS: 87624; 88175

== ENCOUNTER 2025-07-23 10:02 | Emergency (ER) | payer OTHER, SELFPAY ==
[2025-07-23] VITALS (11 sets, daily range): BP systolic 115; BP diastolic 96; PULSE 79–113; TEMP 36.8; O2SAT 97–100; BMI 24.7
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
--- OUTSIDE RECORDS SUMMARY | 2025-07-23 10:51 | XMS_ITS | CCD ---
Author Organization [facility] Care Team Providers Care Robotic Machine Tender Production Name Role Phone LENO JERRY Yamile Primary Care Unavailable MISC, DR SANFORD Primary Care Unavailable MELQUIADES, DR ANDRES Attending Unavailable MELQUIADES, DR ANDRES Admitting Unavailable MELQUIADES, DR ANDRES Consulting Unavailable MISC, DR SANFORD Primary Care Unavailable MELQUIADES, DR ANDRES Admitting Unavailable WEST, DR JAYANT Becerra Consulting Unavailable MELQUIADES, DR ANDRES Attending Unavailable MELQUIADES, DR ANDRES Consulting Unavailable MISC, DR SANFORD Primary Care Unavailable MELQUIADES, DR ANDRES Admitting Unavailable MELQUIADES, DR ANDRES Consulting Unavailable MELQUIADES, DR ANDRES Attending Unavailable MISC, DR SANFORD Primary Care Unavailable KARASIK, DR CROUCH Admitting Unavailable KARASIK, DR CROUCH Consulting Unavailable KARASIK, DR CROUCH Attending Unavailable ZIEBER, DR MARIELENA Romero Consulting Unavailable MELQUIADES, DR ANDRES Admitting Unavailable MELQUIADES, DR ANDRES Attending Unavailable MISC, DR SANFORD Primary Care Unavailable MELQUIADES, DR ANDRES Consulting Unavailable ZIEBER, DR MARIELENA Romero Consulting Unavailable MELQUIADES, DR ANDRES Admitting Unavailable MISC, DR SANFORD Primary Care Unavailable MELQUIADES, DR ANDRES Consulting Unavailable MELQUIADES, DR ANDRES Attending Unavailable MISC, DR SANFORD Primary Care Unavailable KARASIK, DR CROUCH Admitting Unavailable KARASIK, DR CROUCH Attending Unavailable MELQUIADES, DR ANDRES Admitting Unavailable MISC, DR SANFORD Primary Care Unavailable MELQUIADES, DR ANDRES Attending Unavailable MISC, DR SANFORD Primary Care Unavailable KARASIK, DR CROUCH Admitting Unavailable KARASIK, DR CROUCH Consulting Unavailable KARASIK, DR CROUCH Attending Unavailable KARASIK, DR CROUCH Procedure Practitioner NANDO Chacon Consulting Unavailable KAMILLE GREENE Consulting Unavailab le MISC, DR SANFORD Primary Care Unavailable MELQUIADES, DR ANDRES Admitting Unavailable MELQUIADES, DR ANDRES Attending Unavailable MELQUIADES, DR ANDRES Consulting Unavailable MISC, DR SANFORD Primary Care Unavailable MELQUIADES, DR ANDRES Attending Unavailable MELQUIADES, DR ANDRES Admitting Unavailable MELQUIADES, DR ANDRES Consulting Unavailable MELQUIADES, DR ANDRES Admitting Unavailable MISC, DR SANFORD Primary Care Unavailable MELQUIADES, DR ANDRES Consulting Unavailable MELQUIADES, DR ANDRES Attending Unavailable MISC, DR SANFORD Primary Care Unavailable MELQUIADES, DR ANDRES Attending Unavailable MELQUIADES, DR ANDRES Admitting Unavailable MELQUIADES, DR ANDRES Consulting Unavailable PRITIEBER, DR MARIELENA Romero Consulting Unavailable Guanako MEHTA [place] Primary Care Provider MCKENNA ARNETT Attending Unavailable PAO HENDERSON Attending Unavailable Allergies Allergy ClassificationReported Allergen(s)Allergy TypeDate of OnsetReaction(s) Facility (2 sources)Doxycycline; Translations: [DOXYCYCLINE]Drug Xsxomip03-05-7173Ppo[facility] Rep[facility] (2 sources)Propranolol; Translations: [PROPRANOLOL]Drug Qjosanb71-62-7594StkSouthview Medical Center Repository (1 source)ShellfishDrug allergy (disorder)70-92-1547XqnSouthview Medical Center Repository (4 sources)DoxycyclineDrug Azhnnut55-22-1168AesisheSZKC Healthcare Work Phone: (4 sources)hydroCHLOROthiazide / PropranololDrug Idlzziz03-48-9269MkpznwhQZZR Healthcare (4 sources)Shellfish-Derived ProductsDrug Imyrplk96-58-3826NajjkblIPDD Healthcare (3 sources)Fish - dietaryPropensity to adverse -52-1352BQUQ Healthcare (3 sources)PropranololDrug Cvudlhb55-30-0430RvryrpcbXBUP Healthcare (3 sources)Fish-Derived ProductsDrug Eujlmpglwbd38-68-6254VXZA Healthcare (1 source)salmon oil; Translations: [SALMON OIL]Drug Ahoayer63-66-4246NcyggyhpkaRiverview Health Institute Repository (1 source)Shellfish; Translations: [SHELLFISH DERIVED]Propensity to adverse reactions to drug (disorder)46-65-5074SiwhtgdqmwRiverview Health Institute Repository (1 source)FISH CONTAINING PRODUCTS; Translations: [FISH CONTAINING PRODUCTS] Propensity to adverse reactions to drug (disorder)66-57-1327NhqlsowtscParma Community [facility] Hospital Repository (1 source)PROPRANOLOL-HYDROCHLOROTHIAZID; Translations: [PROPRANOLOL-HYDROCHLOROTHIAZID]Propensity to adverse reactions to drug (disorder)27-95-5991WehmdyeobwParma Community General Hospital Repository Medications Current Medications MedicationDrug Class(es)DatesSig (Normalized)Sig (Original)[id number] 200 actuat albuterol 0.09 mg/actuat metered dose inhaler (4 sources)beta2-Adrenergic Agonistalbuterol HFA (ProAir HFA) 90 mcg/act inhaler every 4 (four) hours. Ldyfpa19 hr buPROPion hydrochloride 150 mg extended release oral tablet (4 sources)AminoketonebuPROPion SR (Wellbutrin SR) 150 MG 12 hr tablet 1 (one) time each day at the same time. Activeescitalopram 20 mg oral tablet (4 sources)Serotonin Reuptake Inhibitorescitalopram (Lexapro) 20 MG tablet 1 (one) time each day at the same time. Cligsg293 actuat fluticasone propionate 0.11 mg/actuat metered dose inhaler (4 sources)Corticosteroidtake 1 puff(s) by inhalation in the morningfluticasone (Flovent) 110 MCG/ACT inhaler Inhale 1 puff in the morning and 1 puff before bedtime. Rinse mouth with water after use to reduce aftertaste and incidence of candidiasis. Do not swallow.. Activeloratadine 10 mg oral capsule (4 sources)Loratadine (Claritin) 10 MG capsule 1 capsule 1 (one) time each day at the same time. Activeomeprazole 20 mg delayed release oral capsule (4 sources)Proton Pump Inhibitoromeprazole (PriLOSEC) [address] capsule 1 (one) time each day at the same time. Activesaccharomyces boulardii 250 mg oral capsule (4 sources)saccharomyces boulardii (Florastor) 250 MG capsule as directed Orally Active Problems Active Problems Problem ClassificationProblemDateDocumented DateEpisodic/ChronicAbdominal pain (2 sources)Pain in female pelvis; Translations: [Pelvic and perineal pain] 66-52-3974LinlllwuOyglv bronchitis (1 source)Acute bronchitis, unspecified; Translations: [Acute bronchitis, unspecified]Onset: 29-54-5496WllnmosbHxxdutvwvx and other anemia (1 source)Iron deficiency anemia secondary to blood loss (chronic); Translations: [IRON DEFIC ANEMIA SEC BLD LOSS CHRN]Onset: 03-55-9099Gkqlcxf Menstrual disorders (8 sources)Irregular menstruation, unspecified; Translations: [Menorrhagia] Onset: 31-36-1602QrcbetbDydsk complications of ; puerperium affecting management of mother (1 source)Anemia complicating childbirth; Translations: [ANEMIA COMPLICATING CHILDBIRTH]Onset: 53-40-4884OjlfuvfEivlj complications of ; puerperium affecting management of mother (1 source)Abnormality in heart rate and rhythm complicating labor and delivery; Translations: [ABN FETLHEART RATE RHYTHM COMP L AND D]Onset: 01-40-4994SsabhiywSiauiitg; pneumothorax; pulmonary collapse (1 source)Pleurisy; Translations: [Pleurisy]Onset: 86-11-0438Mhbtohsu Polyhydramnios and other problems of amniotic cavity (1 source)Full-term premature rupture of membranes, onset of labor within 24 hours of rupture; Translations: [FT PROM ONSET LABR W/I 24 HR RUPT]Onset: 29-93-4472LuzoydzuYhabzero codes; unclassified (1 source)37 weeks gestation of ; Translations: [37 WEEKS GESTATION OF ]Onset: 49-75-4362YuaoncqlAqdqyjmvd and history of mental health and substance abuse codes (1 source)Personal history of nicotine dependence; Translations: [PERSONAL HISTORY OF NICOTINE DEPEND]Onset: 28-24-8124ZjlokifmRjbycgescvbw (1 source)CONTACT W/AND (SUSP) EXPOS COVID-19; Translations: [CONTACT W/AND (SUSP) EXPOS COVID-19]Onset: 07-26-2022 Past or Other Problems Problem ClassificationProblemDateDocumented DateEpisodic/ChronicDiabetes mellitus without complication (4 sources)Hyperglycemia, unspecified; Translations: [HYPERGLYCEMIA UNSPECIFIED] Onset: 25-54-9250ZgrzptxrNeovmcoxvrsfr and screening for infectious disease (3 sources)Encounter for screening for human papillomavirus (HPV); Translations: [Encounter for screening for infections with a predominantly sexual mode of transmission]Onset: 89-73-8480MsltcvunHbutf aftercare (4 sources)Surgical follow-up; Translations: [Encounter for follow-up examination after completed treatment for conditions other than malignant neoplasm]Onset: 304766-04-8713ZibwfemsOjcpm circulatory disease (2 sources)Postural orthostatic tachycardia syndrome ; Translations: [Postural orthostatic tachycardia syndrome (POTS)]Onset: 44-85-8046IwyueysqHumfq complications of (4 sources)Maternal care for cervical incompetence, second trimester; Translations: [MAT CARE CERV ZQYPUSGLTNU1SO TRI]Onset: 82-01-3602BtldvzivJejel complications of (1 source)Maternal care for cervical incompetence, first trimester; Translations: [MAT CARE CERV INCOMPETNCE 1ST TRI]Onset: 45-10-2396JzqlvpxrNehay complications of (4 sources)Recurrent miscarriage; Translations: [ care for patient with recurrent loss, unspecified trimester]Onset: 555137-38-7241 EpisodicOther female genital disorders (1 source)Other specified noninflammatory disorders of vagina; Translations: [OTH SPEC NONINFLAMMATORY D/O VAGINA]Onset: 98-78-1057AthljadtPxelk female genital disorders (3 sources)Incompetence of cervix uteri; Translations: [INCOMPETENCE OF CERVIX UTERI]Onset: 06-19-3812EpxldnrnMckoa and delivery including normal (15 sources)Encounter for care and examination of lactating mother; Translations: [Encounter for routine follow-up]Onset: 07-04-2022 EpisodicOther screening for suspected conditions (not mental disorders or infectious disease) (20 sources)Encounter for screening for Streptococcus B; Translations: [Encounter for screening for diabetes mellitus]Onset: 68-24-3474IdufvnarTwzkfomd codes; unclassified (1 source)16 weeks gestation of ; Translations: [16 WEEKS GESTATION OF ]Onset: 95-07-9900PklosbodQawebvda codes; unclassified (1 source)13 weeks gestation of ; Translations: [13 WEEKS GESTATION OF ]Onset: 10-66-9331Rxiblbwh Results Test NameValueInterpretationReference RangeFacilityBronson Lakeview Hospital 44-00-1152Kyfxpy [id number] Marci Peralta 1990 F Date Provider Department Center 06/24/2025 287-PATRICIA, JIMBO [facility] Family History Problem Relation Age of Onset Lupus Mother Ovarian cancer Mother 29 Other Sister Allergies Brother Liver cancer Mother's Brother COPD Maternal Grandmother Breast cancer Paternal Grandmother No Known Problems Daughter Sudden Neg Hx Aneurysm Neg Hx Arrhythmia Neg Hx Family Status - Relation Status Age at Mother Alive Sister Brother Mother's Brother Maternal Grandmother Paternal Grandmother Daughter Alive Neg Hx Reason for Visit and Comments: Med Refill [[id number]][facility] 05-23-2025 [id number] Marci Peralta 1990 F Date Provider Department Center 05/23/2025 287-PATRICIA, JIMBO [facility] Family History Problem Relation Age of Onset Lupus Mother Ovarian cancer Mother 29 Other Sister Allergies Brother Liver cancer Mother's Brother COPD Maternal Grandmother Breast cancer Paternal Grandmother No Known Problems Daughter Sudden Neg Hx Aneurysm Neg Hx Arrhythmia Neg Hx Family Status - Relation Status Age at Mother Alive Sister Brother Mother's Brother Maternal Grandmother Paternal Grandmother Daughter Alive Neg Hx Reason for Visit and Comments: Med Refill [[id number]][facility] 04-[facility]-2025 [id number] Marci Peralta 1990 F Date Provider Department Center 04/24/2025 287-PATRICIA, JIMBO [facility] Family History Problem Relation Age of Onset Lupus Mother Ovarian cancer Mother 29 Other Sister Allergies Brother Liver cancer Mother's Brother COPD Maternal Grandmother Breast cancer Paternal Grandmother No Known Problems Daughter Sudden Neg Hx Aneurysm Neg Hx Arrhythmia Neg Hx Family Status - Relation Status Age at Mother Alive Sister Brother Mother's Brother Maternal Grandmother Paternal Grandmother Daughter Alive Neg Hx Reason for Visit and Comments: Med Refill [[id number]][facility] 03-27-2025 [id number] Marci Peralta 1990 F Date Provider Department Center 03/27/2025 287-PATRICIA, JIMBO [facility] Family History Problem Relation Age of Onset Lupus Mother Ovarian cancer Mother 29 Other Sister Allergies Brother Liver cancer Mother's Brother COPD Maternal Grandmother Breast cancer Paternal Grandmother No Known Problems Daughter Sudden Neg Hx Aneurysm Neg Hx Arrhythmia Neg Hx Family Status - Relation Status Age at Mother Alive Sister Brother Mother's Brother Maternal Grandmother Paternal Grandmother Daughter Alive Neg Hx Reason for Visit and Comments: Med Refill [[id number]][facility] 02-28-2025 [id number] Marci Peralta 1990 F Date Provider Department Center 02/28/2025 287-PATRICIA, JIMBO [facility] Family History Problem Relation Age of Onset Lupus Mother Ovarian cancer Mother 29 Other Sister Allergies Brother Liver cancer Mother's Brother COPD Maternal Grandmother Breast cancer Paternal Grandmother No Known Problems Daughter Sudden Neg Hx Aneurysm Neg Hx Arrhythmia Neg Hx Family Status - Relation Status Age at Mother Alive Sister Brother Mother's Brother Maternal Grandmother Paternal Grandmother Daughter Alive Neg Hx Reason for Visit and Comments: Med Refill [[id number]][facility] 01-29-2025 [id number] MilesMarci 1990 F Date Provider Department Center 01/29/2025 287-PATRICIA, JIMBO [facility] Family History Problem Relation Age of Onset Lupus Mother Ovarian cancer Mother 29 Other Sister Allergies Brother Liver cancer Mother's Brother COPD Maternal Grandmother Breast cancer Paternal Grandmother No Known Problems Daughter Sudden Neg Hx Aneurysm Neg Hx Arrhythmia Neg Hx Family Status - Relation Status Age at Mother Alive Sister Brother Mother's Brother Maternal Grandmother Paternal Grandmother Daughter Alive Neg Hx Reason for Visit and Comments: Med Refill [[id number]][facility] 01-03-2025 [id number] Marci Peralta 1990 F Date Provider Department Center 01/03/2025 287-PATRICIA, JIMBO [facility] Family History Problem Relation Age of Onset Lupus Mother Ovarian cancer Mother 29 Other Sister Allergies Brother Liver cancer Mother's Brother COPD Maternal Grandmother Breast cancer Paternal Grandmother No Known Problems Daughter Sudden Neg Hx Aneurysm Neg Hx Arrhythmia Neg Hx Family Status - Relation Status Age at Mother Alive Sister Brother Mother's Brother Maternal Grandmother Paternal Grandmother Daughter Alive Neg Hx Reason for Visit and Comments: Med Refill [[id number]][facility] 12-04-2024 [id number] Marci Peralta 1990 F Date Provider Department Center 12/04/2024 287-PATRICIA, JIMBO [facility] Family History Problem Relation Age of Onset Lupus Mother Ovarian cancer Mother 29 Other Sister Allergies Brother Liver cancer Mother's Brother COPD Maternal Grandmother Breast cancer Paternal Grandmother No Known Problems Daughter Sudden Neg Hx Aneurysm Neg Hx Arrhythmia Neg Hx Family Status - Relation Status Age at Mother Alive Sister Brother Mother's Brother Maternal Grandmother Paternal Grandmother Daughter Alive Neg Hx Reason for Visit and Comments: Med Refill [[id number]][facility] 11-07-2024 [id number] MilesMarci 1990 F Date Provider Department Center 11/07/2024 287-PATRICIA, JIMBO [facility] Family History Problem Relation Age of Onset Lupus Mother Ovarian cancer Mother 29 Other Sister Allergies Brother Liver cancer Mother's Brother COPD Maternal Grandmother Breast cancer Paternal Grandmother No Known Problems Daughter Sudden Neg Hx Aneurysm Neg Hx Arrhythmia Neg Hx Family Status - Relation Status Age at Mother Alive Sister Brother Mother's Brother Maternal Grandmother Paternal Grandmother Daughter Alive Neg Hx Reason for Visit and Comments: Med Refill [[id number]][facility] 10-12-2024 [id number] MilesMarci 1990 F Date Provider Department Center 10/12/2024 287-PATRICIA, JIMBO [facility] Family History Problem Relation Age of Onset Lupus Mother Ovarian cancer Mother 29 Other Sister Allergies Brother Liver cancer Mother's Brother COPD Maternal Grandmother Breast cancer Paternal Grandmother No Known Problems Daughter Sudden Neg Hx Aneurysm Neg Hx Arrhythmia Neg Hx Family Status - Relation Status Age at Mother Alive Sister Brother Mother's Brother Maternal Grandmother Paternal Grandmother Daughter Alive Neg Hx Reason for Visit and Comments: Med Refill [[id number]][facility] 09-10-2024 [id number] MilesMarci 1990 F Date Provider Department Center 09/10/2024 JIMBO HERNADEZ [facility] Family History Problem Relation Age of Onset Lupus Mother Ovarian cancer Mother 29 Other Sister Allergies Brother Liver cancer Mother's Brother COPD Maternal Grandmother Breast cancer Paternal Grandmother No Known Problems Daughter Sudden Neg Hx Aneurysm Neg Hx Arrhythmia Neg Hx Family Status - Relation Status Age at Mother Alive Sister Brother Mother's Brother Maternal Grandmother Paternal Grandmother Daughter Alive Neg Hx Reason for Visit and Comments: Med Refill [[id number]][facility]36on Vy[place]se increased today at clinic visitNormalUniDayton Children's Hospital Follow-Upon [id number] Marci Peralta 1990 F Date Provider Department Center 08/14/2024 PAO MORA [facility] Family History Problem Relation Age of Onset Lupus Mother Ovarian cancer Mother 29 Other Sister Allergies Brother Liver cancer Mother's Brother COPD Maternal Grandmother Breast cancer Paternal Grandmother No Known Problems Daughter Sudden Neg Hx Aneurysm Neg Hx Arrhythmia Neg Hx Family Status - Relation Status Age at Mother Alive Sister Brother Mother's Brother Maternal Grandmother Paternal Grandmother Daughter Alive Neg Hx Level of Service:16102 [place] OFFICE/OUTPATIENT ESTABLISHED LOW MDM 20 MIN Reason for Visit and Comments: Follow-up [[id number]][facility] 08-14-2024 [id number] Marci Peralta 1990 F Date Provider Department Center 08/14/2024 BRITTANY MCMAHON [facility] Family History Problem Relation Age of Onset Lupus Mother Ovarian cancer Mother 29 Other Sister Allergies Brother Liver cancer Mother's Brother COPD Maternal Grandmother Breast cancer Paternal Grandmother No Known Problems Daughter Sudden Neg Hx Aneurysm Neg Hx Arrhythmia Neg Hx Family Status - Relation Status Age at Mother Alive Sister Brother Mother's Brother Maternal Grandmother Paternal Grandmother Daughter Alive Neg Hx Reason for Visit and Comments: Med Refill [[id number]][facility] CenterIGP,APTIMA HPV,AGE GDLNon 08-73-0649VSK GDLN ACOG TESTINGNote.NOMS HealthcareComment on above:TESTS RESULT FLAG UNITS REF RANGE LAB Clinician Provided Cytology Information Source.............Cervix;Endocervix No. of containers..01 ThinPrep Vial Age Algo ACOG Aure... 30-65 01 FLAG LEGEND: L-Low Normal,H-High Normal,LL-Alert Low,HH-Alert High <-Panic Low,>-Panic High,A-Abnormal,AA-Critical Abnormal Performed at: 01 =G [address] [address] Rosy Khan MD, HPV APTIMANegativeNegativeNOMS HealthcareComment on above:This nucleic acid amplification test detects fourteen high- risk HPV types (16,18,31,33,35,39,45,51,52,56,58,59,66,68) without differentiation. Performed at: =G [facility] [id number] Aoc Director Combat Plans Officer: Rosy Khan MD, Phone: [phone] Performed at: - [facility], [place] [id number] Aoc Director Combat Plans Officer: Rosy Khan MD, Phone: [phone] IGP, APTIMA HPV, RFX 16/18,45Note.NOMS HealthcareComment on above:TESTS RESULT FLAG UNITS REF RANGE LAB DIAGNOSIS: 02 NEGATIVE FOR INTRAEPITHELIAL LESION OR MALIGNANCY. Specimen adequacy: 02 Satisfactory for evaluation. Endocervical and/or squamous metaplastic cells (endocervical component) are present. Performed by: Adam Kang, Gut Dropper (ASCP) . 02 Note: Note 02 The Pap smear is a screening test designed to aid in the detection of premalignant and malignant conditions of the uterine cervix. It is not a diagnostic procedure and should not be used as the sole means of detecting cervical cancer. Both false-positive and false-negative reports do occur. Test Methodology: Note 02 This liquid based ThinPrep(R) pap test was screened with the use of an image guided system. HPV Genotype Reflex Note 02 Criteria not met, HPV Genotype not performed. FLAG LEGEND: L-Low Normal,H-High Normal,LL-Alert Low,HH-Alert High <-Panic Low,>-Panic High,A-Abnormal,AA-Critical Abnormal Performed at: [facility] [address] [place] [address] Rosy Khan MD, BRUSH-SPATULA CERVIX ENDOCERVIX [facility] [id number] Marci Peralta 1990 F Date Provider Department Center 07/24/2024 JIMBO HERNADEZ [facility] No family history on file Reason for Visit and Comments: Med Refill [[id number]][facility] CenterPRBC LEUKOREDUCEDon 12-91-9031VVC and Rh group Nom (Bld)Cross Match Result Compatible Unit Blood Type A Pos Unit Number [id number] Status Information Transfused Product ID Red Blood Cells Product Code [id number] Cross Match Result Compatible Unit Blood Type A Pos Unit Number [id number] Status Information Transfused Product ID Red Blood Cells Product Code [id number]-Hyde Memorial HospitalComment on above:Performed By: #### PRBC #### [facility] [address] [place] [address] Dr. Kobi SureshC AUTO DIFFon 50-98-8661BFHG #0.0 103/ulNormal0.0-0.1[facility] Medical CenterComment on above:Performed By: #### CBC #### [facility] [address] [place] [address] Dr. Kobi Ussophils/100 WBC (Bld)0.2 %Normal0.2-2.0[facility] Comment on above:Performed By: #### CBC #### [facility] [address] [place] [address] Dr. Kobi Garcia #0.1 103/ulNormal0.0-0.7ThMcCullough-Hyde Memorial HospitalComment on above: Performed By: #### CBC #### [facility] [address] [place] [address] Dr. Kobi Benitezosinophils/100 WBC (Bld)0.4 %Critically low0.9-7.0The [facility] HospitalComment on above:Performed By: #### CBC #### [facility] [address] [place] [address] Dr. Yilan ChangErythrocyte distribution width (RBC) [Ratio]16.0 %Critically high 11.0-15.0The [facility] Southment on above:Performed By: #### CBC #### [facility] [address] [place] [address] Dr. Kobi CruzHematocrit (Bld) [Volume fraction]25.1 %Critically low36.0-48.0 The [facility] HospitalComment on above:Performed By: #### CBC #### [facility] [address] [place] [address] Dr. Kobi CruzHemoglobin (Bld) [Mass/Vol]8.2 g/dLCritically low12.0-16.0The [facility] HospitalComment on above:Performed By: #### CBC #### [facility] [address] [place] [address] Dr. Kobi Ley #0.20 10e3/ulCritically high0.00-0.03[facility] Comment on above:Performed By: #### CBC #### [facility] [address] [place] [address] Dr. Kobi Ley %1.1 %Critically high0.0-0.5The [facility] HospitalComment on above:Performed By: #### CBC #### [facility] [address] [place] [address] Dr. Kobi BullockH #1.9 103/ulNormal1.2-3.8The [facility] HospitalComment on above:Performed By: #### CBC #### [facility] [address] [place] [address] Dr. Kobi Clearymphocytes/100 WBC (Bld)10.1 %Critically low20.5-60.0The [facility] Southment on above:Performed By: #### CBC #### [facility] [address] [place] [address] Dr. Kobi LakeUAL DIFF REQNONormalThe [facility] HospitalComment on above: Performed By: #### CBC #### [facility] [address] [place] [address] Dr. Kobi Rossi (RBC) [Entitic mass]27.1 arBgwciu96.7-34.0The [facility] HospitalComment on above:Performed By: #### CBC #### [facility] [address] [place] [address] Dr. Kobi Rossi (RBC) [Mass/Vol]32.7 g/lWZezkux46.9-35.2The [facility] HospitalComment on above:Performed By: #### CBC #### [facility] [address] [place] [address] Dr. Kobi Rossi (RBC) [Entitic vol]82.8 xBJgaslb60.0-99.0The Henry County HospitalComment on above:Performed By: #### CBC #### [facility] [address] [place] [address] Dr. Kobi Sanz #1.2 103/ulCritically high0.3-0.8[facility] Comment on above:Performed By: #### CBC #### [facility] [address] [place] [address] Dr. Kobi Gillilandocytes/100 WBC (Bld)6.4 %Normal1.7-12.0[facility] Comment on above:Performed By: #### CBC #### [facility] [address] [place] [address] Dr. Kobi Garcia #15.4 103/ulCritically high1.4-6.5[facility] Comment on above:Performed By: #### CBC #### [facility] [address] [place] [address] Dr. Kobi Arguelloutrophils/100 WBC (Bld)81.8 %Critically high43.0-75.0The [facility] HospitalComment on above:Performed By: #### CBC #### [facility] [address] [place] [address] Dr. Kobi Carr mean volume (Bld) [Entitic vol]10.2 fLNormal9.5-13.5The [facility] HospitalComment on above:Performed By: #### CBC #### [facility] [address] [place] [address] Dr. Kobi CruzPLT211 103/tdIrdjdb536-533Bxa [facility]Com[facility] on above: Performed By: #### CBC #### [facility] [address] [place] [address] Dr. Kobi CruzRBC3.03 106/ulCritically low4.20-5.40The [facility]Com[facility] on above:Performed By: #### CBC #### [facility] [address] [place] [address] Dr. Kobi CruzWBC18.8 103/ulCritically high4.0-11.0The [facility]Com[facility] on above:Performed By: #### CBC #### [facility] [address] [place] [address] Dr. Kobi CruzBASO #0.0 103/ulNormal0.0-0.1The [facility]Com[facility] on above:Performed By: #### CBC #### [facility] [address] [place] [address] Dr. Kobi Ussophils/100 WBC (Bld)0.1 %Critically low0.2-2.0The [facility] on above:Performed By: #### CBC #### [facility] [address] [place] [address] Dr. Kobi Garcia #0.0 103/ulNormal0.0-0.7The [facility]Com[facility] on above: Performed By: #### CBC #### [facility] [address] [place] [address] Dr. Kobi Benitezosinophils/100 WBC (Bld)0.2 %Critically low0.9-7.0The [facility] on above:Performed By: #### CBC #### [facility] [address] [place] [address] Dr. Kobi Benitezrythrocyte distribution width (RBC) [Ratio]15.7 %Critically high 11.0-15.0The [facility]lan HospitalComment on above:Performed By: #### CBC #### [facility] [address] [address] [address] Kobi CruzHematocrit (Bld) [Volume fraction]21.2 %Critically low36.0-48.0 The [facility] HospitalComment on above:Performed By: #### CBC #### [facility] [address] [address] [address] Kobi CruzHemoglobin (Bld) [Mass/Vol]6.5 g/dLCritically low12.0-16.0The [facility] HospitalComment on above:Performed By: #### CBC #### [facility] [address] [place] [address] Dr. Kobi CruzIG #0.13 10e3/ulCritically high0.00-0.03[facility] Comment on above:Performed By: #### CBC #### [facility] [address] [address] [address] Kobi CruzIG %0.7 %Critically high0.0-0.5The [facility] HospitalComment on above:Performed By: #### CBC #### [facility] [address] [address] [address] Kobi Tinsley #1.9 103/ulNormal1.2-3.8The [facility] HospitalComment on above:Performed By: #### CBC #### [facility] [address] [place] [address] Dr. Kobi Clearymphocytes/100 WBC (Bld)9.9 %Critically low20.5-60.0[facility] CenterComment on above:Performed By: #### CBC #### [facility] [address] [address] [address] Kobi LakeUAL DIFF REQNONormalThe [facility] County HospitalComment on above: Performed By: #### CBC #### [facility] [address] [place] [address] Dr. Kobi Quintanilla (RBC) [Entitic mass]24.4 pgCritically low26.7-34.0The [facility] HospitalComment on above:Performed By: #### CBC #### [facility] [address] [address] [address] Kobi RossiHC (RBC) [Mass/Vol]30.7 g/cVIpcicz28.9-35.2The [facility] HospitalComment on above:Performed By: #### CBC #### [facility] [address] [address] [address] Kobi RossiV (RBC) [Entitic vol]79.7 fLCritically low81.0-99.0The [facility] HospitalComment on above:Performed By: #### CBC #### [facility] [address] [place] [address] Dr. Kobi Sanz #1.0 103/ulCritically high0.3-0.8[facility] Comment on above:Performed By: #### CBC #### [facility] [address] [place] [address] Dr. Kobi Gillilandocytes/100 WBC (Bld)5.3 %Normal1.7-12.0[facility] Comment on above:Performed By: #### CBC #### [facility] [address] [place] [address] Dr. Kobi Garcia #15.8 103/ulCritically high1.4-6.5[facility] Comment on above:Performed By: #### CBC #### [facility] [address] [place] [address] Dr. Kobi Arguelloutrophils/100 WBC (Bld)83.8 %Critically high43.0-75.0The [facility] HospitalComment on above:Performed By: #### CBC #### [facility] [address] [address] [address] Kobi Mathewlet mean volume (Bld) [Entitic vol]10.2 fLNormal9.5-13.5The [facility] HospitalComment on above:Performed By: #### CBC #### [facility] [address] [place] [address] Dr. Kobi KohliT218 103/ewRvgran657-461Wsy [facility] HospitalComment on above: Performed By: #### CBC #### [facility] [address] [place] [address] Dr. Kobi CruzRBC2.66 106/ulCritically low4.20-5.40The [facility] HospitalComment on above:Performed By: #### CBC #### [facility] [address] [place] [address] Dr. Kobi CruzWBC18.8 103/ulCritically high4.0-11.0The [facility] HospitalComment on above:Performed By: #### CBC #### [facility] [address] [place] [address] Dr. Kobi Parisi AUTO DIFFon 31-33-0874IATA #0.0 103/ulNormal0.0-0.1The [facility] HospitalComtr[facility] on above:Performed By: #### HH #### [facility] [address] [place] [address] Dr. Kobi Ussophils/100 WBC (Bld)0.1 %Critically low0.2-2.0The [facility] on above:Performed By: #### HH #### [facility] [address] [place] [address] Dr. Kobi Garcia #0.1 103/ulNormal0.0-0.7The [facility] on above: Performed By: #### HH #### [facility] [address] [place] [address] Dr. Kobi Benitezosinophils/100 WBC (Bld)0.6 %Critically low0.9-7.0The [facility] on above:Performed By: #### HH #### [facility] [address] [place] [address] Dr. Kobi Benitezrythrocyte distribution width (RBC) [Ratio]15.5 %Critically high 11.0-15.0The [facility] Southment on above:Performed By: #### HH #### [facility] [address] [place] [address] Dr. Yilan ChangHematocrit (Bld) [Volume fraction]26.7 %Critically low36.0-48.0 The [facility] HospitalComment on above:Performed By: #### HH #### [facility] [address] [place] [address] Dr. Kobi CruzHemoglobin (Bld) [Mass/Vol]8.4 g/dLCritically low12.0-16.0The [facility] HospitalComment on above:Performed By: #### HH #### [facility] [address] [place] [address] Dr. Kobi CruzIG #0.12 10e3/ulCritically high0.00-0.03[facility] Comment on above:Performed By: #### HH #### [facility] [address] [place] [address] Dr. Kobi CruzIG %0.9 %Critically high0.0-0.5The [facility] HospitalComment on above:Performed By: #### HH #### [facility] [address] [place] [address] Dr. Kobi Tinsley #1.6 103/ulNormal1.2-3.8The [facility] HospitalComment on above:Performed By: #### HH #### [facility] [address] [place] [address] Dr. Kobi Clearymphocytes/100 WBC (Bld)11.6 %Critically low20.5-60.0The [facility] HospitalComment on above:Performed By: #### HH #### [facility] [address] [place] [address] Dr. Kobi CruzMANUAL DIFF REQNONormalThe [facility] HospitalComment on above: Performed By: #### HH #### [facility] [address] [place] [address] Dr. Kobi Quintanilla (RBC) [Entitic mass]24.7 pgCritically low26.7-34.0The [facility] HospitalComment on above:Performed By: #### HH #### [facility] [address] [place] [address] Dr. Kobi RossiHC (RBC) [Mass/Vol]31.5 g/gTUvcmfr26.9-35.2The [facility] HospitalComment on above:Performed By: #### HH #### [facility] [address] [address] [address] Kobi RossiV (RBC) [Entitic vol]78.5 fLCritically low81.0-99.0The [facility] HospitalComment on above:Performed By: #### HH #### [facility] [address] [address] [address] Kobi Sanz #1.0 103/ulCritically high0.3-0.8ThMcC[facility] Comment on above:Performed By: #### HH #### [facility] [address] [place] [address] Dr. Kobi Gillilandocytes/100 WBC (Bld)7.0 %Normal1.7-12.0[facility] Comment on above:Performed By: #### HH #### [facility] [address] [place] [address] Dr. Kobi Garcia #10.8 103/ulCritically high1.4-6.5[facility] Comment on above:Performed By: #### HH #### [facility] [address] [place] [address] Dr. Kobi Arguelloutrophils/100 WBC (Bld)79.8 %Critically high43.0-75.0The [facility] HospitalComment on above:Performed By: #### HH #### [facility] [address] [place] [address] Dr. Kobi Mathewlet mean volume (Bld) [Entitic vol]11.0 fLNormal9.5-13.5The [facility] HospitalComment on above:Performed By: #### HH #### [facility] [address] [place] [address] Dr. Kobi CruzPLT280 103/abQhgqll707-899Wiq [facility] HospitalComment on above: Performed By: #### HH #### [facility] [address] [place] [address] Dr. Kobi CruzRBC3.40 106/ulCritically low4.20-5.40[facility] CenterComment on above:Performed By: #### HH #### [facility] [address] [place] [address] Dr. Kobi CruzWBC13.5 103/ulCritically high4.0-11.0The [facility] HospitalComment on above:Performed By: #### HH #### [facility] [address] [place] [address] Dr. Kobi CruzCovid-19 PCR ([facility])on 84-22-1282TORD-CoV-2 (COVID-19) RNA AGETANO+probe Ql (Unsp spec)Not detectedNormalNOT DETECTEDThe [facility] Comment on above:Result Comment: When diagnostic testing is negative, the [...] for this test is supported by the [place] of Health and Human Service's declaration that circumstances exist to justify the emergency use of in vitro diagnostics for the detection and/or diagnosis of the virus that causes COVID-19. This EUA will remain in effect for the duration of the COVID-19 declaration justifying emergency of IVDs, unless it is terminated or revoked by the FDA (after which the test may no longer be used).Performed By: #### A1C #### [facility] [address] [place] [address] Dr. Kobi CruzDRUG SCREEN RAPID (URINE)on [id number]MWSXKR The [facility] HospitalComment on above:Performed By: #### HH #### [facility] [address] [place] [address] Dr. Kobi CruzBARNegativeNormalNEGATIVESouthview Medical CenterComment on above: Performed By: #### HH #### [facility] [address] [place] [address] Dr. Kobi CruzBUPNegativeNormalNEGATIVESouthview Medical CenterComtrinity [facility] on above: Performed By: #### HH #### [facility] [address] [address] [address] Kobi CruzBZONegativeNormalNEGATIVESouthview Medical CenterComment on above: Performed By: #### HH #### [facility] [address] [place] [address] Dr. Kobi CruzCOCNegativeNormalNEGATIVESouthview Medical CenterComment on above: Performed By: #### HH #### [facility] [address] [place] [address] Dr. Kobi PalomoClermont County Hospitalment on above: Result Comment: AMP (Amphetamine): 500ng/mL, BAR (Barbituates): 200 ng/mL, BZO (Benzodiazepines): 150 ng/mL, BUP (Buprenorphine): 10 ng/mL, GUSTAVO (Cocaine): 150 ng/mL, mAMP (Methamphetamine): 500 ng/mL, MTD (Methadone): 200 ng/mL, OPI (Opiates): 100 ng/mL, OXY (Oxycodone): 100 ng/mL, PCP (Phencyclidine): 25 ng/mL, PPX (Propoxyphene): 300 ng/mL, THC (Cannabinoids): 50 ng/mL, TCA (Trycyclic Antidepressants): 300 ng/mLPerformed By: #### HH #### [facility] [address] [place] [address] Dr. Kobi CruzDRUG CUT HEADERDRUG CLASS TEST SYSTEM CUT-OFF CONCENTRATIONS ARE FOLLOWS:NormalThe [facility] on above:Performed By: #### HH #### [facility] [address] [place] [address] Dr. Kobi CruzmAMPNegativeNormalNEGATIVEMercy Health Willard Hospital on above: Performed By: #### HH #### [facility] [address] [place] [address] Dr. Kobi CruzMTDNegativeNormalNEGKindred Hospital DaytonComment on above: Performed By: #### HH #### [facility] [address] [place] [address] Dr. Kobi CruzOPINegativeNormalNEGKindred Hospital DaytonComtrinity health [facility] on above: Performed By: #### HH #### [facility] [address] [place] [address] Dr. Kobi CruzOXYNegativeNormalNEGKindred Hospital DaytonComment on above: Performed By: #### HH #### [facility] [address] [place] [address] Dr. Kobi CruzPCPNegativeNormalNEGKindred Hospital DaytonComtr[facility] on above: Performed By: #### HH #### [facility] [address] [place] [address] Dr. Kobi CruzPPXNegativeNormalNEGKindred Hospital DaytonComtr[facility] on above: Performed By: #### HH #### [facility] [address] [place] [address] Dr. Kobi CruzTCANegativeNormalNEGCommunity Regional Medical Center on above: Performed By: #### HH #### [facility] [address] [place] [address] Dr. Kobi CruzTHCNegativeNormalNEGCommunity Regional Medical Center on above: Performed By: #### HH #### [facility] [address] [place] [address] Dr. Kobi CruzTYPE AND SCREENon [id number] AND SCREENNegativeNoVeterans Health AdministrationComtrinity health ann [facility] hospital on above:Performed By: #### HH #### [facility] [address] [place] [address] Dr. Kobi CruzGROUP B STREP CULTUREon 06-23-2022. agalactiae Ag Ql (Unsp spec) Culture Observations: NEGATIVE FOR GROUP B STREPTOCOCCUS.NormalDelaware County Hospitalment on above: Performed By: #### HH #### [facility] [address] [place] [address] Dr. Kobi CruzGLUCOSE BLOODon 13-16-3794Oqswpal [Mass/Vol]93 mg/jPPsstts38-098 The [facility] HospitalComment on above:Performed By: #### GLUC #### [facility] [address] [place] [address] Dr. Kobi CruzPerformed By: #### A1C #### [facility] [address] [place] [address] Dr. Kobi CruzGTT 3 HR PREGon 04-95-3600Qjkukzv [Mass/Vol]153 mg/dLNoVeterans Health AdministrationComment on above:Performed By: #### A1C #### [facility] [address] [place] [address] Dr. Kobi CruzGlucose [Mass/Vol]84 mg/dLNoVeterans Health AdministrationComment on above:Performed By: #### A1C #### [facility] [address] [place] [address] Dr. Kobi CruzGlucose [Mass/Vol]80 mg/dLNoVeterans Health AdministrationComment on above:Performed By: #### A1C #### [facility] [address] [place] [address] Dr. Kobi CruzGLUCOSE - 1HRon 32-45-0701Kidlnnn [Mass/Vol]140 mg/dLCritically twkm33-565Ddl [facility] HospitalComment on above:Performed By: #### A1C #### [facility] [address] [place] [address] Dr. Kobi CruzHEMOGRAM AND PLATELon 59-88-3669Xncxcugqdl (Bld) [Volume fraction]29.7 %Critically low36.0-48.0The [facility] HospitalComment on above: Performed By: #### HH #### [facility] [address] [place] [address] Dr. Kobi CruzHemoglobin (Bld) [Mass/Vol]9.6 g/dLCritically low12.0-16.0The [facility] HospitalComment on above:Performed By: #### HH #### [facility] [address] [place] [address] Dr. Kobi Rossi (RBC) [Entitic mass]28.1 mgQnpbne60.7-34.0The [facility] HospitalComment on above:Performed By: #### HH #### [facility] [address] [place] [address] Dr. Kobi Rossi (RBC) [Mass/Vol]32.3 g/kFGpmtaz43.9-35.2The [facility] HospitalComment on above:Performed By: #### HH #### [facility] [address] [place] [address] Dr. Kobi CruzOKLAHOMA [facility] [place] (RBC) [Entitic vol]86.8 dWCskjjn33.0-99.0The [facility] HospitalComment on above:Performed By: #### HH #### [facility] [address] [place] [address] Dr. Kobi CruzPLT320 103/azKbkpke595-771Ikt [facility] HospitalComment on above: Performed By: #### HH #### [facility] [address] [place] [address] Dr. Kobi CruzRBC3.42 106/ulCritically low4.20-5.40The [facility] HospitalComtrinity health [facility] on above:Performed By: #### HH #### [facility] [address] [place] [address] Dr. Kobi CruzWBC12.4 103/ulCritically high4.0-11.0The [facility] HospitalComment on above:Performed By: #### HH #### [facility] [address] [place] [address] Dr. Kobi Canales PREG ANATOMY SINGLEon [id number] PREG ANATOMY SINGLE EXAMINATION: US PREG ANATOMY [...] Electronically authenticated by: JAYANT MCGRAW Date: 2022-03-03 16:43[facility] ACOG PANEL 2: to 29on 02-15-2022..NormalThe [facility] HospitalComment on above:Performed By: #### A1C #### [facility] [address] [place] [address] Dr. Kobi Lewis Gdln ACOG Awkpgiw28-75JbeqcyXkgKettering Health Main CampusComment on above:Performed By: #### A1C #### [facility] [address] [address] [address] Kobi CruzDIAGNOSIS:CommentNoBluffton Hospitalment on above: Result Comment: NEGATIVE FOR INTRAEPITHELIAL LESION OR MALIGNANCY.Performed By: #### A1C #### [facility] [address] [place] [address] Dr. Kobi CruzMethodology:CommentNoVeterans Health AdministrationComment on above: Result Comment: This liquid based ThinPrep(R) pap test was screened with the use of an image guided system.Performed By: #### A1C #### [facility] [address] [place] [address] Dr. Kobi CruzNote:CommentFayette County Memorial Hospital on above:Result Comment: The Pap smear is a screening test designed to aid in the detection of premalignant and malignant conditions of the uterine cervix. It is not a diagnostic procedure and should not be used as the sole means of detecting cervical cancer. Both false-positive and false-negative reports do occur. .Performed By: #### A1C #### [facility] [address] [place] [address] Dr. Kobi CruzPerformed by:CommentFayette County Memorial Hospital on above: Result Comment: Ben Alfaro, Gut Dropper (ASCP)Performed By: #### A1C #### [address] [address] Dr[address] Kobi CruzReflex Criteria:CommentFayette County Memorial Hospital on above:Result Comment: The HPV DNA reflex criteria were not met with this specimen result therefore, no HPV testing was performed. .Performed By: #### A1C #### [address] [address] Dr[address] Kobi CruzSpecimeandi adequacy:CommentFayette County Memorial Hospital on above:Result Comment: Satisfactory for evaluation. No endocervical component is identified.Performed By: #### A1C #### [address] [address] Dr[address] Kobi CruzCHLAMYDIA/GONOCOCCUS GAETANO (SWAB/URINE/PAPon 05-76-5169Vjtowbhyd trachomatis, NAANegativeNormalNegativeSouthview Medical CenterComment on above: Performed By: #### A1C #### [facility] [address] [place] [address] Dr. Kobi CruzNeisseria gonorrhoeae, NAANegativeNormalNegativeSouthview Medical CenterComment on above:Performed By: #### A1C #### [facility] [address] [place] [address] Dr. Kobi CruzVAGINITIS/VAGINOSIS DNA PROBEon 89-31-2951Opttvqe speciesNegative NormalNegativeSouthview Medical CenterComment on above:Performed By: #### VAGINT #### [facility] [address] [place] [address] Dr. Kobi Jasso vaginalisNegativeNormalNegHolzer Medical Center – [facility] Comment on above:Performed By: #### VAGINT #### [facility] [address] [place] [address] Dr. Kobi Augustin vaginalisNegativermmdNegHolzer Medical Center – [place] Comment on above:Performed By: #### VAGINT #### [facility] [address] [place] [address] Dr. Kobi Canales PREG CERVICAL LENGTHon [id number] PREG CERVICAL LENGTH EXAMINATION: US PREG CERVICAL [...] Electronically authenticated by: MARIELENA MCCARTHY Date: 2022-02-03 10:57NoVeterans Health AdministrationUS PREG CERVICAL LENGTHon [id number] PREG CERVICAL LENGTH EXAMINATION: US PREG CERVICAL [...] Electronically authenticated by: MARIELENA MCCARTHY Date: 2022-01-13 09:28[facility] HospitalHEP B SURFACE ANTIGEN SCREENon 88-29-8740EOwEu ScreenNegative NormalNegativeSouthview Medical CenterComment on above:Performed By: #### HBSANS #### [facility] [address] [place] [address] Dr. Kobi WeiPATITIS C VIRUS AB W/ REFLEX QUANTon 73-17-2474VYM AB0.1 s/co ratioNormal0.0-0.9The [facility] on above:Performed By: #### A1C #### [facility] [address] [place] [address] Dr. Kobi CruzInterpretation:CommentNormalThe [facility] on above:Result Comment: Negative Not infected with HCV, unless recent infection is suspected or other evidence exists to indicate HCV infection.Performed By: #### A1C #### [facility] [address] [place] [address] Dr. Kobi CruzHIV 1 AND 2 WITH REFLEXon 40-99-5751ZHY Screen 4th Generation wRfxNon-ReactiveNormalNon ReactiveThe [facility] on above:Result Comment: HIV Negative HIV-1/HIV-2 antibodies and HIV-1 p24 antigen were NOT detected. There is no laboratory evidence of HIV infection.Performed By: #### HH #### [facility] [address] [place] [address] Dr. Kobi CruzRPR QUANTon 04-09-0025Eygmv Plasma Reagin, QuantNon-Reactive NormalNonRea<1:1The [facility] on above:Result Comment: Please Note: This test does not meet current guidelines for screening and diagnosis of syphilis. This test is intended for following treatment response in patients being treated for syphilis infection. To screen for syphilis infection, a reflex cascade that includes both RPR and a treponema-specific assay should be utilized, such as Treponema pallidum (Syphilis) Screening Lynch (044990) or Rapid Plasma Reagin (RPR) Test With Reflex to Quantitative RPR and Confirmatory Treponema pallidum Antibodies (263071).Performed By: #### A1C #### [facility] [address] [place] [address] Dr. Kobi ThomasBELLA AB IGGon 87-16-7466Azcvyds Antibodies, IgG12.70 index NormalImmune >0.99The Kinde HospitalComment on above:Result Comment: Non- immune <0.90 Equivocal 0.90 - 0.99 Immune >0.99Performed By: #### A1C #### [facility] [address] [place] [address] Dr. Kobi Parisi AUTO DIFFon 91-27-2221SNIZ #0.0 103/ulNormal0.0-0.1The [facility] HospitalComment on above:Performed By: #### HH #### [facility] [address] [place] [address] Dr. Kobi CruzBasophils/100 WBC (Bld)0.2 %Normal0.2-2.0[facility] Comment on above:Performed By: #### HH #### [facility] [address] [place] [address] Dr. Peace ChangEHector #0.5 103/ulNormal0.0-0.7The [facility] HospitalComment on above: Performed By: #### HH #### [facility] [address] [place] [address] Dr. Kobi Benitezosinophils/100 WBC (Bld)3.5 %Normal0.9-7.0[facility] Comment on above:Performed By: #### HH #### [facility] [address] [place] [address] Dr. Kobi Benitezrythrocyte distribution width (RBC) [Ratio]12.5 %Bumkct47.0-15.0 [facility] CenterComment on above:Performed By: #### HH #### [facility] [address] [place] [address] Dr. Kobi CruzHematocrit (Bld) [Volume fraction]34.8 %Critically low36.0-48.0 [facility] CenterComment on above:Performed By: #### HH #### [facility] [address] [place] [address] Dr. Kobi CruzHemoglobin (Bld) [Mass/Vol]12.0 g/gGZsyxlx09.0-16.0[facility] HospitalComment on above:Performed By: #### HH #### [facility] [address] [place] [address] Dr. Kobi Ley #0.04 10e3/ulCritically high0.00-0.03[facility] Comment on above:Performed By: #### HH #### [facility] [address] [place] [address] Dr. Kobi Ley %0.3 %Normal0.0-0.5[facility] HospitalComment on above: Performed By: #### HH #### [facility] [address] [place] [address] Dr. [facility] #2.0 103/ulNormal1.2-3.8[facility] HospitalComment on above:Performed By: #### HH #### [facility] [address] [place] [address] Dr. Kobi Bullockhocytes/100 WBC (Bld)14.8 %Critically low20.5-60.0[facility] HospitalComment on above:Performed By: #### HH #### [facility] [address] [place] [address] Dr. Kobi LakeUAL DIFF REQNONormalThe [facility] HospitalComment on above: Performed By: #### HH #### [facility] [address] [place] [address] Dr. Kobi Rossi (RBC) [Entitic mass]30.8 svVahidk53.7-34.0[facility] HospitalComment on above:Performed By: #### HH #### [facility] [address] [place] [address] Dr. Kobi Rossi (RBC) [Mass/Vol]34.5 g/iGBwvjvh00.9-35.2[facility] HospitalComment on above:Performed By: #### HH #### [facility] [address] [place] [address] Dr. Kobi Rossi (RBC) [Entitic vol]89.2 bPTrvndx18.0-99.0[facility] HospitalComment on above:Performed By: #### HH #### [facility] [address] [place] [address] Dr. Kobi Sanz #0.8 103/ulNormal0.3-0.8[facility] HospitalComment on above:Performed By: #### HH #### [facility] [address] [place] [address] Dr. Kobi Gillilandocytes/100 WBC (Bld)6.2 %Normal1.7-12.0[facility] Comment on above:Performed By: #### HH #### [facility] [address] [place] [address] Dr. Kobi Garcia #10.1 103/ulCritically high1.4-6.5[facility] Comment on above:Performed By: #### HH #### [facility] [address] [place] [address] Dr. Kobi Arguelloutrophils/100 WBC (Bld)75.0 %Pkazgc24.0-75.0[facility] HospitalComment on above:Performed By: #### HH #### [facility] [address] [place] [address] Dr. Kobi Carr mean volume (Bld) [Entitic vol]8.9 fLCritically low 9.5-13.5The [facility] HospitalComment on above:Performed By: #### HH #### [facility] [address] [place] [address] Dr. Kobi CruzPLT445 103/qhEjmpee657-326Zfz [facility] HospitalComment on above: Performed By: #### HH #### [facility] [address] [place] [address] Dr. Kobi CruzRBC3.90 106/ulCritically low4.20-5.40The [facility] HospitalComment on above:Performed By: #### HH #### [facility] [address] [place] [address] Dr. Kobi CruzWBC13.5 103/ulCritically high4.0-11.0The [facility] HospitalComment on above:Performed By: #### HH #### [facility] [address] [place] [address] Dr. Kobi CruzCULTURE URINEon [id number] URINECulture Observations: NO GROWTHNoVeterans Health AdministrationComtrinity health [facility] on above:Performed By: #### URCX #### [facility] [address] [place] [address] Dr. Kobi CruzGLYCOHEMOGLOBIN A1Con 90-31-1023FRY RECOMMENDATIONSEE BELOWNormal [facility] CenterComtr[facility] on above:Result Comment: ADA RECOMMENDED LIMIT 4.0 - 6.0 ADA THERAPEUTIC TARGET < 7.0 ACTION SUGGESTED > 7.0Performed By: #### A1C #### [facility] [address] [place] [address] Dr. Kobi CruzGlucose [Mass/Vol]105 mg/dLNoVeterans Health AdministrationComtrinity health ann [facility] hospital on above:Performed By: #### A1C #### [facility] [address] [place] [address] Dr. Kobi CruzHbA1c (Bld) [Mass fraction]5.3 %Normal4.5-6.2The [facility] on above:Performed By: #### A1C #### [facility] [address] [place] [address] Dr. Kobi Spann BOX TEST PT SEND OUTon [id number] TO REF LAB01/01/2022 NormalThe [facility] HospitalComtr[facility] on above:Performed By: #### A1C #### [facility] [address] [place] [address] Dr. Kobi CruzTYPE AND SCREENon 83-09-9823UUYV AND SCREENNegativeNoVeterans Health AdministrationComtrinity health [facility] on above:Performed By: #### TNS #### [facility] [address] [place] [address] Dr. Kobi CruzUS PREG TVon [id number] PREG TVEXAMINATION: US PREG TV HISTORY: Missed period COMPARISON: [...] live intrauterine . Electronically authenticated by: MARIELENA MCCARTHY Date: 2021-12-14 10:35[facility] With Platelet and Differentialon 84-76-5768Ftinpgmuf #/vol (Bld)0.1 10*3/uLNormal0.0-0.2MercThomas HospitalBasophils/100 WBC (Bld)1.0 %[facility] Medical CenterEosinophils #/vol (Bld)1.1 10*3/uL Critically high0.0-0.7[facility] HospitalEosinophils/100 WBC (Bld)15.0 %NormalLongmont United HospitalErythrocyte distribution width Ratio (RBC) 12.0 %Mmybtb77.5-14.5[facility] HospitalHematocrit Volume Fraction (Bld)38.5 %Kixqnk66.0-47.0[facility] HospitalHemoglobin mass conc (Bld)13.6 g/rMKzergq67.0-16.0[facility] HospitalLymphocytes #/vol (Bld)1.8 10*3/uLNormal1.0-4.8[facility] HospitalLymphocytes/100 WBC (Bld)23.7 %NormalLongmont United HospitalMCH Entitic mass (RBC)33.3 pg Critically high27.0-31.3[facility] HospitalMCHC mass conc (RBC)35.3 % Eanolk53.0-37.0[facility] HospitalMCV Entitic volume (RBC)94.3 fL Tbtkdh06.0-100.0[facility] HospitalMonocytes #/vol (Bld)0.7 10*3/uL Normal0.2-0.8[facility] CenterMonocytes/100 WBC (Bld)8.6 %Normal [facility] HospitalNeutrophils #/vol (Bld)3.9 10*3/uLNormal1.4-6.5 [facility] HospitalNeutrophils/100 WBC (Bld)51.7 %NormalLongmont United HospitalPlatelets #/vol (Bld)374 10*3/bAMejtum964-879BbhftLongmont United HospitalRBC #/vol (Bld)4.09 10*6/uLLow4.20-5.40[facility] HospitalWBC #/vol (Bld)7.6 10*3/uLNormal4.8-10.8[facility] Comprehensive Metabolic Panelon 04-46-1971Ntvvdea mass conc4.9 g/dLNormal3.9-4.9 [facility] HospitalALP enzyme act/vol49 U/MUfyfna25-640AfqgmLongmont United HospitalALT enzyme act/vol14 U/LNormal0-33[facility] Anion gap molar conc11 mmol/LNormal7-13[facility] HospitalAST enzyme act/vol19 U/LNormal0-35[facility] HospitalBilirubin mass conc0.3 mg/dL Normal0.0-1.2MSterling Regional MedCenterCalcium mass conc9.5 mg/dLNormal 8.6-10.2MSterling Regional MedCenterChloride molar oezr661 mmol/HQrvdsq33-861 [facility] HospitalCO2 molar conc24 mmol/TLvfulr92-94BdrxvLongmont United HospitalCreatinine mass conc0.66 mg/dLNormal0.50-0.90[facility] HospitalGFR/1.73 sq M predicted among blacks MDRD vol rate/area (S/P/Bld) mL/min/{1.73_m2}Normal>60[facility] HospitalComment on above:Result Comment: >60 mL/min/1.73m2 EGFR, calc. for ages 18 and older using the MDRD formula (not corrected for weight), is valid for stable renal function.GFR/1.73 sq M.predicted MDRD vol rate/areamL/min/{1.73_m2}Normal >60[facility] HospitalComment on above:Result Comment: >60 mL/min/1.73m2 EGFR, calc. for ages 18 and older using the MDRD formula (not corrected for weight), is valid for stable renal function.Globulin mass conc (S)3.1 g/dLNormal2.3-3.5[facility] HospitalGlucose mass nvef062 mg/kIZnrxsr40-458HntkpLongmont United Hospital Potassium molar conc3.8 mmol/LNormal3.5-5.1MSterling Regional MedCenterProtein mass conc8.0 g/dLNormal6.4-8.1MMontrose Memorial Hospitalodium molar aztq055 mmol/VLhssrt477-035ThcgtLongmont United HospitalUrea nitrogen mass conc13 mg/dL Normal6-20[facility] HospitalCulture, Urineon [id number], Urine ORDERED BY: JAYANT BERMUDEZ SOURCE: Urine Clean Catch COLLECTED: 09/30/18 16:00 ANTIBIOTICS AT [facility]LLIE.: RECEIVED : 09/30/18 16:40 Culture, Urine FINAL 10/01/18 09:26 <50,000 CFU/ml of mixed nadiya Multiple organisms isolated, no predominance. Culture indicates probable contamination. Please review colony count and clinical indications to determine if a repeat culture is necessary. No further workup to be done.NormalLongmont United HospitalD- Dimer Quanton [id number]-Dimer Quant0.32 mg/L FEUNormal0.00-0.50[facility] HospitalComment on above:Result Comment: VTE (DVT or PE) cut-off = 0.50 mg/L FEUMagnesiumon 74-89-2983Zkxnangbt mass conc2.1 mg/dLNormal1.7-2.3MSterling Regional MedCenterTSH w/out Reflexon 89-79-9736Hzqvpyjatyo Qn1.270 uIU/mL Normal0.270-4.20[facility] HospitalUrinalysis, reflex to cultureon 88-42-1911Orueqbbub Ql (U)NegativeNormalNegativeLongmont United Hospital Clarity Nom (U)CLOUDYAbnormalClearMSterling Regional MedCenterColor Nom (U) YellowNormalStraw/YellLongmont United HospitalGlucose Ql (U)NegativeNormal NegativeLongmont United HospitalHemoglobin Ql (U)TRACEAbnormalNegativeLongmont United HospitalKetones Ql (U)NegativeNormalNegativeLongmont United HospitalLeukocyte esterase Test strip Ql (U)TRACEAbnormmdNegWeisbrod Memorial County HospitalNitrite Ql (U)NegativeNormalNegWeisbrod Memorial County HospitalpH (U)5.0 [pH]Normal5.0-9.0[facility] HospitalProtein Ql (U)NegativeNormalNegMemorial Hospital Centralpecific gravity Relative Density (U)1.711Bdvppn4.005-1.03[facility] HospitalUrine Reflexed to CultureYESSwedish Medical CenterUrobilinogen Qn (U)1.0 {Lenin'U}/dLNormal< 2.0[facility] United HospitalUrine Microscopicon 16-12-6348UHK #/vol (U)3-8Dwigmlro6-8DorcaSterling Regional MedCenterWBC #/vol (U) 8-80Tgztwsfi5-8LezspLongmont United HospitalBacteria LM.HPF #/area (Urine sed) MANYAbKindred Hospital - DenverUrine Epithelial Cells Auto6-10Normal 0-5[facility] HospitalComment on above:Result Comment: Effective 07/31/2018 Urinalysis microscopic performed using the automated methodology (AUWI analyzer).XR CHEST (2 VW)on 10-50-5107YK CHEST (2 VW)EXAMINATION: XR CHEST (2 VW) CLINICAL HISTORY: cough COMPARISONS: February 24, 2014 FINDINGS: Two views of the chest are submitted. The cardiac silhouette is of normal size configuration. The mediastinum is unremarkable. Pulmonary vascular unremarkable. Right sided trachea. No focal infiltrates. No effusions. No Pneumothoraces. IMPRESSION: NO ACUTE ACTIVE CARDIOPULMONARY PROCESS Interpreted by: Chris Robles MD Signed by: Chris Robles MD 10/01/18 Final resultSwedish Medical Center Vital Signs Date TimeVital SignValuePerforming BpxsntdipMiswdmgn18-76-0223 10:09-0500Body mass index (BMI) [Ratio]24.14 kg/d6Tzxwn Melquiades DO Work Phone: [facility] WestJbsbndoaou64-03-8158 10:09-0500Body eihjng57.88 kgCorey Melquiades DO Work Phone: [facility] Hlxrwbxlny49-84-1650 10:09-0500Diastolic blood fthynxcg86 mm[Hg]Mckenna Melquiades DO Work Phone: noPA Auukxkkjhd79-30-2059 10:090500Systolic blood dbhgiwsh331 mm[Hg]Mckenna Melquiades DO Work Phone: [facility] Encounters Encounter DateEncounter TypeCare ProviderFacilityStart: 89-06-1846sythbabukb [facility] Hospitaltart: 07-30-2024 End: 57-02-9799Miaros flowsheetCorey Melquiades DO Work Phone: [facility] OBStart: 07-30-2024 End: 65-57-6349Fntgci flowsheetCorey Melquiades DO Work Phone: noMS BCP OBStart: 07-30-2024 End: 17-35-4820Micqawevz Result EncounterCorey Melquiades DO Work Phone: [facility] External Department UnsolicitedStart: 07-30-2024 End: 60-79-1815Xfbfgh outpatient visit 15 minutesCorey Melquiades DO Work Phone: [facility] OBComment on above:Well woman exam with routine gynecological exam; Menorrhagia with regular cycle; Pelvic pain in female; DysmenorrheaStart: 07-30-2024 End: 30-68-3297Jnbuuof encounter procedureCorey Melquiades DO Work Phone: [facility] HealthcareStart: 07-30-2024 End: 49-35-9222ookstbxrngTHQPT FAZIONot AvailableStart: 07-13-2022 End: 58-43-2748olbisevhhjKY MCKENNA FAZIOFacility:E3Yunir: 07-09-2022 End: 60-14-6520pmebxpdgmmRQ DOCTOR MISCFacility:T0Wyyuy: 07-04-2022 End: 43-75-1914Jkyqwhsxfj and management of inpatientDR DOCTOR MISCFacility:H1 Start: 06-23-2022 End: 66-01-4175vvnmwablrhGI MCKENNA FAZIOFacility:W6Eymdh: 05-18-2022 End: 86-30-6825umobtnqxobBS MCKENNA FAZIOFacility:P9Qjnpn: 05-04-2022 End: 93-94-5190umyydntsfxHE DOCTOR MISCFacility:F3Vvaww: 03-03-2022 End: 80-81-5021molhpjurcsJH DOCTOR MISCFacility:D9Rdiiw: 02-11-2022 End: 42-56-5133vdtystwkwjHB DOCTOR MISCFacility:E7Vgthv: 02-03-2022 End: 39-43-1507ozxjcsknywTU DOCTOR MISCFacility:Z9Iegez: 01-13-2022 End: 94-38-3333dstabuoagiJD MCKENNA FAZIOFacility:A2Sucbx: 01-01-2022 End: 19-49-5045uggueyanshWD DOCTOR MISCFacility:F9Etfsh: 12-14-2021 End: 97-34-8390oopemenbvhML DOCTOR MISCFacility:I8Lettl: 09-30-2018 End: 43-61-8138Ragipmzqt department patient visitNICHOLSON D [facility] Procedures DateProcedureProcedure DetailPerforming ClinicianStart: 65-52-6580ROY,APTIMA HPV,AGE GDLNCorey Melquiades DO Work Phone: Start: 02-66-7031Yxmdxzblyqe observation [Identifier] in Cervix by Cyto stainCorey Melquiades DO Work Phone: Start: 02-18-2023H/O: sectionS/P Mckenna Melquiades DO Work Phone: Start: 26-40-1909Batnbstgbjl of Nonautologous Red Blood Cells into Peripheral Vein, Percutaneous ApproachDR DOCTOR MISCStart: 67-15-4946Pchvqogifd of Products of Conception, Low Cervical, Open ApproachDR DOCTOR MISCStart: 83-57-4034Cixewqxmyb exam chest 2 viewsCHRISTOPHER SEARSStart: 73-81-5301Fpuxo of magnesiumCHRISTOPHER SEARSStart: 88-14-3862Ajaet of thyroid stimulating hormone tshCHRISTOPHER SEARSStart: 44-47-5327Tccalvnvbdaqy metabolic panelCHRISTOPHER SEARSStart: 19-97-6486CGQS URINE PREGNANCYCHRISTOPHER SEARS Start: 07-09-8918Icbor count complete auto&auto difrntl wbcCHRISTOPHER SEARS Start: 47-38-4185Pczokai bacterial quanttative colony count urineCHRISTOPHER SEARSStart: 09-11-3297P-DIMER, QUANTITATIVECHRISTOPHER SEARSStart: 09-30-2018 Microscopic urinalysisCHRISTOPHER SEARSStart: 06-80-2853YRSLS RT REFLEX TO CULTURECHRISTOPHER SEARS Plan of Treatment DateCare ActivityDetailAuthorStart: 43-14-6287Udopnmrhd for malignant neoplasm of cervixNOMS HealthcareStart: 77-57-8904Htmzyqsrb for malignant neoplasm of cervixPap SmearNOMS HealthcareStart: 09-10-2024 End: 43-02-7717Lynjxki encounter jjicklmpb17/06/2025 10:30 AM EST Consult [facility] [address] [place] [phone] Mckenna Arnett, DO [address] [place] [address] [facility] BCP OBStart: 08-07-2024 End: 53-57-3390Hhczbnrdvxxp / ancillary services tvuqhyeryq61/03/2024 11:00 AM EST Ancillary Procedure [facility] [address] [place] [phone] [facility] BCP OBStart: 07-30-2024 End: 35-19-2552hQMD in Blood by Coagulation assayAPTT Lab Routine Menorrhagia with regular cycle Expected: 07/30/2024 (Approximate), Expires: 07/30/2025[facility] HealthcareComment on above:Expected: 07/30/2024 (Approximate), Expires: 07/30/2025Start: 07-30-2024 End: 59-37-1980QQ for pregnancyUS PELVIS-TRANSVAG IF INDICATED Imaging Routine Menorrhagia with regular cycle Expected: 07/30/2024(Approximate), Expires: 07/30/2025[facility] HealthcareComment on above:Expected: 07/30/2024 (Approximate), Expires: 07/30/2025Start: 07-30-2024 End: 62-75-0020Ppvimqm encounter eingtaprr23/25/2024 10:00 AM EST Office Visit [facility] [address] [place] [phone] Mckenna Arnett DO [address] [place] [place] [address] ArrivedNOCOASTAL COMMUNITIES [facility] OBComment on above:ArrivedStart: 96-81-1792Ixodxyuui vaccinationInfluenza Vaccine (#1)[facility] HealthcareCBC W Auto Differential panel - BloodCBC and differential Lab Routine Menorrhagia with regular cycle Ordered: 07/30/2024[facility] HealthcareComment on above:Ordered: 07/30/2024ytology Cervical or vaginal smear or scraping studyPap Smear Pathology and Cytology Routine Well woman exam with routine gynecological exam Ordered: 07/30/2024[facility] Healthcare Work Phone: comment on above:Ordered: 07/30/2024hCG, quantitative, pregnancyhCG, quantitative, Lab Routine Menorrhagia with regular cycle Ordered: 07/30/2024[facility] HealthcareComment on above:Ordered: 07/30/2024 Hemoglobin A1c/Hemoglobin.total in BloodHemoglobin A1c Lab Routine Menorrhagia with regular cycle Ordered: 07/30/2024[facility] HealthcareComment on above:Ordered: 07/30/2024Human papilloma virus DNA [Presence] in Unspecified specimen by Probe with amplificationHPV DNA probe, amplified Microbiology Routine Well woman exam with routine gynecological exam Ordered: 07/30/2024[facility] HealthcareComment on above:Ordered: 07/30/2024rothrombin time (PT) in Blood by Coagulation assay Protime-INR Lab Routine Menorrhagia with regular cycle Ordered: 07/30/2024[facility] HealthcareComment on above:Ordered: 07/30/2024Thyrotropin [Units/volume] in Serum or PlasmaTSH Lab Routine Menorrhagia with regular cycle Ordered: 07/30/2024[facility] HealthcareComment on above:Ordered: 07/30/2024Thyroxine (T4) free [Mass/volume] in Serum or PlasmaT4, free Lab Routine Menorrhagia with regular cycle Ordered: 07/30/2024[facility] HealthcareComment on above:Ordered: 07/30/2024 Payers DatePayer CategoryPayerPolicy [id number] Health Insurance[facility]ICA[facility] ..[id number] [id number] 2.1.916275.3.57[id number] 2..1.571053.3.57[id number] .1.723606.3.57[id number] ..1.789560.3.57[id number] .1.776892.3.57[id number] 2..1.559759.3.57[id number] 2.1.132005.3.57[id number] 2.840.1.835746.3.57[id number] 2.16.840.1.731308.3.57[id number] 2.16.840.1.381023.3.57[id number] 2.840.1.794649.3.57[id number] 2.840.1.134085.3.57[id number] 2.840.1.055085.3.57[id number] 2.840.1.401460.3.579.2.1259 [id number] 1958Self-pay [id number] 2.0.1.989091.3.579.2.593 Social History DateTypeDetailFacilityStart: 69-65-4893Tfmpqju smoking status NHISNever smoked tobaccoNOMS HealthcareStart: 86-71-3805Kdiaoro use and exposureSmokeless tobacco non-userNOMS HealthcareStart: 02-21-2023 End: 62-18-9979Qwtyjhxbw beverage intakeLifetime non-drinker (finding)[facility] HealthcareStart: 02-21-2023 End: 64-38-5702Qhxnvqx of Social functionNOMS HealthcareStart: 02-21-2023 End: 84-49-9424Kyyxrze use panelNOMS HealthcareStart: 77-96-2989Kgt assigned at birthNot on [facility] Progress note 08-14-2024 Note Date & BjvyYnnnGtliheki01-41-1281 NoteOrder placed in errorRiverview Health Institute Progress note 08-14-2024 Note Date & QmpfRhofXashnxym02-65-2974 NoteSYNCOPE AND AUTONOMIC DISORDERS CLINIC Reason for Consultation: Follow-up of postural tachycardia syndrome HPI: Marci Peralta is a 33 y.o. year old with past medical history of Postural orthostatic tachycardia syndrome. She saw Dr. Courtney last visit and he commenced Vyvanse for orthostatic intolerance. Chief Complaint: Yearly follow up POTS. She has a two year old child. Triggers of syncope: prolonged standing. Near syncope. Blood draw syncope Previous nursing informatics specialist, behavioral health. Currently on Vyvanse for the POTS. Bupropion and Lexapro PCP. Dr Jerry Review of Systems Cardiovascular: Positive for near-syncope and syncope. Neurological: Positive for dizziness and light-headedness. Objective Vitals reviewed. Constitutional: Appearance: Healthy appearance. Not in distress. Neck: Vascular: No JVR. JVD normal. Pulmonary: Effort: Pulmonary effort is normal. Breath sounds: Normal breath sounds. No wheezing. No rhonchi. No rales. Chest: Chest wall: Not tender to palpatation. Cardiovascular: PMI at left midclavicular line. Normal rate. Regular rhythm. Normal S1. Normal S2. Murmurs: There is no murmur. No gallop. No click. No rub. Pulses: Intact distal pulses. Edema: Peripheral edema absent. Abdominal: General: Bowel sounds are normal. Palpations: Abdomen is soft. Tenderness: There is no abdominal tenderness. Musculoskeletal: Normal range of motion. General: No tenderness. Skin: General: Skin is warm and dry. Neurological: General: No focal deficit present. Mental Status: Alert and oriented to person, place and time. Assessment/Plan The encounter diagnosis was POTS (postural orthostatic tachycardia syndrome). Problem List Items Addressed This Visit POTS (postural orthostatic tachycardia syndrome) - Primary POTS. Chronic. Unstable. Will continue Vyvanse. Helpful. Dr. Courtney. Continue SSRI/ SNRI per PCP. May help the POTS. RTC yearly. Pao Henderson APRN PhD Syncope and Autonomic Disorders [facility] Nurse Practitioner Division of Cardiovascular Medicine [facility] History of Present illness Narrative 07-30-2024 Note Date & XrtcJlgyMfoclbae28-69-1296 History of Present illness Narrative* Connie Duke, [employer] EMPLOYEE - 07/30/2024 10:00 AM EST Reason for Appointment: Patient ID: Marci Peralta is a 33 y.o. female who presents for Gynecologic Exam Patient presents today for Annual Exam. MEDICATIONS Current Outpatient Medications Medication Instructions albuterol HFA (ProAir HFA) 90 mcg/act inhaler Every 4 hours buPROPion SR (Wellbutrin SR) 150 MG 12 hr tablet Every 24 hours escitalopram (Lexapro) 20 MG tablet Every 24 hours fluticasone (Flovent) 110 MCG/ACT inhaler 1 puff, Inhalation, 2 times daily RT, Rinse mouth with water after use to reduce aftertaste and incidence of candidiasis. Do not swallow. Loratadine (Claritin) 10 MG capsule 1 capsule, Every 24 hours omeprazole (PriLOSEC) [address] capsule Every 24 hours saccharomyces boulardii (Florastor) 250 MG capsule as directed Orally ALLERGIES Allergies Allergen Reactions Propranolol Swelling Other Reaction(s): other Patient states face swells and gets itchy Other reaction(s): other Patient states face swells and gets itchy Doxycycline Itching Other Reaction(s): other Other reaction(s): other Fish Allergy Fish-Derived Products Propranolol-Hctz Itching Shellfish-Derived Products Itching PROBLEMS Active Ambulatory Problems Diagnosis Date Noted Encounter for routine follow-up 02/18/2023 Postop check 02/18/2023 care for patient with recurrent loss, unspecified trimester 02/18/2023 S/P 02/18/2023 Resolved Ambulatory Problems Diagnosis Date Noted No Resolved Ambulatory Problems Past Medical History: Diagnosis Date Anxiety Asthma (CMS/HCC) Cervical incompetence Irritable bowel syndrome Marijuana abuse Miscarriage Postural orthostatic tachycardia syndrome HISTORY PAST MEDICAL HISTORY SOCIAL HISTORY Past Medical History: Diagnosis Date Anxiety Asthma (CMS/HCC) Cervical incompetence Irritable bowel syndrome Marijuana abuse Miscarriage Postural orthostatic tachycardia syndrome Social History Tobacco Use Smoking status: Never Smokeless tobacco: Never Substance Use Topics Alcohol use: Never Drug use: Never FAMILY HISTORY Family History Problem Relation Name Age of Onset Anemia Mother Ovarian cancer Mother Autoimmune disease Mother Other (Thyroid problems) Mother COPD Maternal Grandmother Breast cancer Paternal Grandmother SURGICAL HISTORY Past Surgical History: Procedure Laterality Date SECTION, LOW TRANSVERSE COLONOSCOPY 2011 IBS D&C FIRST TRIMESTER / TX INCOMPLETE / MISSED / SEPTIC / INDUCED REVIEW OF SYSTEMS Review of Systems: Review of Systems Constitutional: Negative. HENT: Negative. Eyes: Negative. Respiratory: Negative. Cardiovascular: Negative. Gastrointestinal: Negative. Genitourinary: Positive for menstrual problem and pelvic pain. Musculoskeletal: Negative. Skin: Negative. Neurological: Negative. All other systems reviewed and are negative. Hematological: Negative. Endocrine: Negative. Allergic/Immunologic: Negative. OBJECTIVE Objective: Physical Exam Constitutional: Appearance: Normal appearance. She is well-developed. Genitourinary: Vulva normal. Breasts: Breasts are soft. Right: Normal. Left: Normal. Cardiovascular: Rate and Rhythm: Normal rate and regular rhythm. Pulmonary: Effort: Pulmonary effort is normal. Breath sounds: Normal breath sounds. Abdominal: General: Bowel sounds are normal. There is no distension. Palpations: Abdomen is soft. Tenderness: There is no abdominal tenderness. There is no guarding or rebound. Musculoskeletal: General: No swelling. Normal range of motion. Right lower leg: No edema. Left lower leg: No edema. Neurological: Mental Status: She is alert and oriented to person, place, and time. Skin: General: Skin is warm and dry. Psychiatric: Mood and Affect: Mood normal. Behavior: Behavior normal. Vitals and nursing note reviewed. Exam conducted with a hyperion developer present. Vitals: Estimated body mass index is 24.14 kg/m as calculated from the following: Height as of 02/21/23: 5' 2 . Weight as of this encounter: 132 lb. BP: 110/64 Patient's last menstrual period was 07/14/2024 (approximate). ASSESSMENT & PLAN ICD-10-CM 1. Well woman exam with routine gynecological exam Z01.419 Pap Smear HPV DNA probe, amplified 2. Menorrhagia with regular cycle N92.0 3. Pelvic pain in female R10.2 4. Dysmenorrhea N94.6 Annual Exam: Patient presents today for an annual exam. Patient states she is doing well and has complaints of heavy painful periods, pt desires sterilization and surgical management. Pt to be scheduled for bilateral salpingectomy with endometrial ablation. Pt given labs and ultrasound orders to have obtained. Pap was obtained without difficulty. Orders Placed This Encounter Procedures HPV DNA probe, amplified Follow Up: Patient is to return in one year for annual unless needed otherwise. Documented by Connie Duke LPN on behalf of: Mckenna Arnett DO documented [facility] Evaluation note Note Date & TypeNoteFacilityEvaluation note* Diagnosis Well woman exam with routine gynecological exam Routine gynecological examination Menorrhagia with regular cycle Pelvic pain in female Unspecified symptom associated with female genital organs Dysmenorrhea documented in this encounter [facility] Summary Purpose Family History No Family History Records FoundNo Family History Records FoundNo Family History Records FoundNo Family History Records Found Advance Directives No Advanced Directives Records FoundNo Advanced Directives Records FoundNo Advanced Directives Records FoundNo Advanced Directives Records Found Additional Source Comments INFORMATION SOURCE (unrecogn ized section and content) DATE CREATED AUTHOR 10/14/2018 [facility] DATE CREATED AUTHOR AUTHOR'S ORGANIZ ATION 10/19/2022 [facility] DATE CREATED AUTHOR AUTHOR'S ORGANIZ ATION 08/01/2024 [facility] DATE CREATED AUTHOR AUTHOR'S ORGANIZ ATION 06/28/2025 [facility] Care Teams (unrecognized sec tion and content) Team MemberRelationshipSpecialtyStart DateEnd Date Leno Jerry MD [address] [place] [address] PCP - GeneralInternal Medicine02/21/23Team MemberRelationshipSpecialtyStart Date End Date Leno Jerry MD [address] [place], [place] [phone] PCP - GeneralInternal Medicine02/21/23Team MemberRelationshipSpecialtyStart Date End Date Leno Jerry MD [address] [place], [place] [phone] PCP - GeneralInternal Medicine02/21/23 Reason for Visit (unrecogniz ed section and content) ReasonCommentsGynecologic Exam FOR RECORDS PERTAINING TO PATIENTS WHO ARE [...] BE BASED ON THE PRIMARY CLINICAL RECORDS. [facility]. provides no warranty or guarantee of the accuracy or completeness of information in this document.
[2025-07-23] MEDS: IBUPROFEN 400 MG TABLET 800 MG PO (11:32)
--- NOTE | 2025-07-23 11:44 | ECG_ITS ---
[facility] Test Date: 2025-07-23 Pat Name: ELLIOT PERALTA Department: Room: - Gender: Female Compass Operator: : 1990 Requested By: [id number] Order Number: [id number] Reading MD: RADHA HICKEY M.D. Measurements Intervals [place] Rate: 88 P: 61 [place]: 154 QRS: 51 QRSD: 78 T: 44 QT: 360 QTc: 406 Interpretive Statements 1100 Sinus rhythm 8102 Low QRS voltage in chest leads 9120 atypical ECG No previous ECG available for comparison Electronically Signed On 07-23-2025 21:35:35 EST by RADHA HICKEY M.D.
== END 2025-07-23 11:44 | disposition home or self-care (01) ==
PROVIDERS: Emergency Provider Emergency Medicine; PCP Internal Medicine
DX: S20.219A Contusion of unspecified front wall of thorax, initial encounter (principal); V44.5XXA Car driver injured in collision with heavy transport vehicle or bus in traffic accident, initial encounter; Y92.413 State road as the place of occurrence of the external cause
CPT/HCPCS: 71045; 93005; 99284